=== PATIENT | male | born 1940 | race Caucasian/White ===

== ENCOUNTER 2017-02-28 13:43 | Inpatient (IN) | payer MEDICARE, OTHER ==
[~2017-02-28] VITALS: Ht 190.5 cm; Wt 95.0 kg
[2017-02-28] VITALS (9 sets, daily range): BP systolic 108–134; BP diastolic 54–87; PULSE 5–78; RESP 15–20; O2SAT 95–99
[~2017-02-28 13:43] MED LIST: AMLO5TAB2 PO; ASPI-973 PO; CHOL10008 PO; CYAN1TAB42 PO; FEXO-46 PO; FURO40TA4 PO; GLIP10TA10 PO; LISI10TA PO; METF500T4 PO; NPH,100I SUBQ; PARO10TA2 PO; PRAM0.252 PO; PRAV80TA2 PO; RANI300C PO; SAW160CA2 PO; TRAM50TA2 PO; WARF1TAB6 PO
--- NOTE | 2017-02-28 15:48 | ED.REPORT ---
HPI-Stroke / CVA Feb 28, 2017 ED Provider: Hunter Silvestre MD Pt is a 77 year old male with a hx of TIAs presenting to the ED complaining of slurred speech. His family reports that he was normal today, and then started having confusion and slurred speech a few minutes ago. Pt reports that symptoms have been intermittent for 1 week, and happened 2 nights ago, then resolved, now happened again today. He states that he thinks he had 2 "mini strokes" last week. Denies hx of kidney problems. He has been off Coumadin for [address] Mason today and was advised to come to the ED, he did not have any symptoms today prior to his ED visit. Nursing Notes Stated Complaint: Slurred Speech Chief Complaint: Neuro Symptoms/ Deficits Nursing Notes Reviewed: Yes Allergies: Coded Allergies: Penicillins (Verified Allergy, Severe, SWELLING, 02/28/17) Scheduled Amlodipine (Amlodipine) 5 Mg Tablet 5 MG PO BID (Reported) Aspirin (Aspirin) 81 Mg Tablet 81 MG PO QAM (Reported) Cholecalciferol (Vitamin D3) (Vitamin D3) 1,000 Unit Tab.chew 1,000 UNIT PO QAM (Reported) Cyanocobalamin/Folic Acid (Vitamin J24-Jwbyg Acid Tablet) 1 Each Tablet 1 EACH PO QAM (Reported) Fexofenadine (Fexofenadine) 60 Mg Tablet 120 MG PO QAM (Reported) Furosemide (Furosemide) 40 Mg Tablet 20 MG PO QAM (Reported) Glipizide (Glipizide) 10 Mg Tablet 10 MG PO BIDWM (Reported) Lisinopril (Lisinopril) 10 Mg Tablet 10 MG PO BID (Reported) Metformin (Glucophage) 1,000 Mg Tablet 1,000 MG PO BIDWM (Reported) NPH, Human Insulin Isophane (HUMulin-N U100 Insulin Kwikpen) 100 Unit/1 Ml Insuln.pen 10 UNIT SUBQ HS (Reported) Paroxetine (Paroxetine) 10 Mg Tablet 10 MG PO HS (Reported) Pravastatin (Pravastatin) 80 Mg Tablet 80 MG PO HS (Reported) Saw [place] (Saw [place]) 160 Mg Capsule 160 MG PO QAM (Reported) Warfarin Sodium (Warfarin Sodium) 5 Mg Tablet 2.5 MG PO QPM (Reported) Scheduled PRN Acetaminophen (Acetaminophen) 325 Mg Tablet 650 MG PO Q4H PRN PRN For Pain ( Reported) Scopolamine (Transderm-Scop) 1 Each Patch.td72 1 EACH TD DIRECTED PRN PRN MOTION SICKNESS (Reported) USES WHEN GOES FISHING General Time Seen by Provider: 16:35 Chief Complaint Slurred speech Hx Obtained From: Patient, Spouse Arrived By: Walk-in Time last known well 0145 Sudden in Onset?: Yes Symptom Duration: Since onset Progression Since Onset: Gradually worsening Severity: Current: No pain currently Severity: Maximum: No pain Associated with: Reports: Confusion, Speech problem Recent Healthcare: No recent doctor visit, No recent hospitalization Similar Sx Previous: Yes Past Medical History Past Medical History Dysphagia Reports hx of TIAs Past Surgical History Endoscopy Smoking History Former Smoker Ambulatory Status Independent Review of Systems Unable to Obtain ROS Mental status Neurologic: Reports: Confusion, Slurred speech Physical Exam Nursing note and vitals reviewed. Constitutional: Well-developed, well-nourished. Not diaphoretic. Head: Normocephalic and atraumatic. Mouth/Throat: Oropharynx is clear and moist. No oropharyngeal exudate. Eyes: EOM are normal. Pupils are equal, round, and reactive to light. Neck: Supple, no tracheal deviation. Cardiovascular: Normal rate, regular rhythm. Equal and intact distal pulses throughout. Pulmonary/Chest: Effort normal and breath sounds normal. No respiratory distress. Abdominal: Soft. No distension. There is no tenderness, rebound, or guarding. Bowel sounds present. Musculoskeletal: Range of motion grossly intact, moving all extremities. No edema or tenderness appreciated. Neurological: AOx3. Strength and sensation intact and equal to bilateral upper and lower extremities. Normal finger to nose testing. No pronator drift. Negative Romberg. Speech a bit slurred, right side facial droop. Right sided dysmetria. Skin: Warm and dry, no rashes or pallor appreciated. Psychiatric: Appropriate mood and affect. Behavior appears normal. Initial Vital Signs Vital Signs (First) Date Time Temp Pulse Resp B/P Pulse Ox O2 Delivery O2 Flow Rate FiO2 02/28/17 13:49 36.5 77 18 108/68 96 Room Air Initial VS: Reviewed Interpretation & Diagnostics Interpretation & Diagnostics: CT ANGIO BRAIN/NECK: IMPRESSION: 1. Deep and periventricular white matter changes and volume loss likely associated with chronic microvascular ischemic changes. 2. 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 3. Mild stenosis within the central cervical portion of the right internal carotid artery secondary to atheromatous calcification. 4. No other stenosis, occlusion, or aneurysm. 5. Large anterior mediastinal mass incompletely characterized on this limited view of the chest. Nonemergent, dedicated CT of the chest with contrast is recommended to further characterize this finding. Dictated by: Kim Christy M.D. on 02/28/2017 at 17:48 Lab Results Interpretation Result Diagram: 02/28/17 1554 02/28/17 1554 Test 02/28/17 15:44 02/28/17 15:54 02/28/17 17:29 Activated Partial Thromboplast Time 63.7sec (22.8-33.0) Troponin T < 0.010ug/L (0.0-0.011) Triglycerides Level 90mg/dL (0-149) Cholesterol Level 128mg/dL (100-199) LDL Cholesterol, Calculated 80.000mg/dL (0-99) VLDL Cholesterol 18.000mg/dL HDL Cholesterol 30mg/dL (>39) Cholesterol/HDL Ratio 4.27 (0.0-4.4) Alcohols < 10mg/dL (0-10) White Blood Count 13.4th/mm3 (3.8-10.1) Red Blood Count 4.36mil/mm3 (4.40-5.80) Hemoglobin 11.2g/dL (13.8-17.2) Hematocrit 35.8% (41.0-50.0) Mean Corpuscular Volume 82.1fL (81-100) Mean Corpuscular Hemoglobin 25.7pg (27.0-35.0) Mean Corpuscular Hemoglobin Concent 31.3% (32.0-37.0) Red Cell Distribution Width 15.6% (12.3-15.4) Platelet Count 288bil/L (150-400) Neutrophils (%) (Auto) 79.0% (40-74) Lymphocytes (%) (Auto) 11.0% (14-46) Monocytes (%) (Auto) 7.0% (4-12) Eosinophils (%) (Auto) 2.4% (0-5) Basophils (%) (Auto) 0.4% (0-3) Prothrombin Time 41.7sec (8.1-12.5) Prothromb Time International Ratio 3.79ratio Sodium Level 138mEq/L (134-144) Potassium Level 3.8mEq/L (3.5-5.2) Chloride Level 100mEq/L (97-108) Carbon Dioxide Level 22mmol/L (18-29) Blood Urea Nitrogen 21mg/dL (8-27) Creatinine 0.99mg/dL (0.76-1.27) Estimat Glomerular Filtration Rate 78mL/min (>59) Glucose Level 40mg/dL (60-99) Calcium Level 9.7mg/dL (8.5-10.1) Total Bilirubin 0.5mg/dL (0.0-1.2) Aspartate Amino Transf (AST/SGOT) 30U/L (0-50) Alanine Aminotransferase (ALT/SGPT) 25U/L (0-44) Alkaline Phosphatase 118U/L (25-160) Total Protein 7.7g/dL (6.4-8.4) Albumin 3.9g/dL (3.4-5.0) Hold Grossman Top Tube Received (Received) Urine Color Yellow (YELLOW) Urine Appearance Clear (CLEAR,HAZY) Urine pH 5.5 (5.0-8.0) Urine Specific [place] 1.020 (1.003-1.035) Urine Protein Negativemg/dL (NEG,TRACE) Urine Glucose (UA) Negativemg/dL (NEGATIVE) Urine Ketones Negativemg/dL (NEGATIVE) Urine Occult Blood Trace (NEGATIVE) Urine Nitrite Negative (NEGATIVE) Urine Bilirubin Negative (NEGATIVE) Urine Urobilinogen Normalmg/dL (NORMAL) Urine Leukocyte Esterase Small (NEGATIVE) Urine RBC 0-2/hpf (0-2) Urine WBC 6-10/hpf (0-5) Urine Epithelial Cells Few/hpf (NONE-MOD) Urine Crystals None seen (NONE SEEN) Urine Bacteria Few/hpf (NONE-FEW) Urine Hyaline Casts None/lpf (NONE) Urine Granular Casts None seen (NONE SEEN) Urine Waxy Casts None seen (NONE SEEN) Urine Red Blood Cell Casts None seen (NONE SEEN) Urine White Blood Cell Casts None seen (NONE SEEN) Urine Mucus None seen (None Seen) Urine Trichomonas None seen (NONE SEEN) Urine Yeast None (NONE SEEN) Urinalysis Comment None Urine Culture Reflexed Indicated Urine Opiates Screen Negative Urine Methadone Screen Negative Urine Barbiturates Screen Negative Urine Amphetamines Screen Negative Urine Benzodiazepines Screen Negative Urine Cocaine Metabolite Screen Negative Urine Cannabinoids Screen Negative ECG Interpretation ECG Interpretation: Atrial fibrillation Time: 16:01 Interpreted by: ED physician Normal ECG Interpretation: Normal rate (67) X-Ray Chest Interpretation Chest Xray Interpretation: IMPRESSION: Newly apparent right apical opacity may represent early pneumonia versus loculated pleural effusion. Dictated by: Pierre Barragan M.D. on 02/28/2017 at 15:06 View: Portable, 1 view Interpretation / Wet Read by: Interpret - Radiologist CT Head Interpretation IMPRESSION: 1. No acute intracranial findings. 2. Extensive findings likely associated with chronic microvascular ischemic changes. Dictated by: Kim Christy M.D. on 02/28/2017 at 17:18 Interpretation / Wet Read by: Interpret - Radiologist Re-Eval/Medical Decision Med Decision/Clinical Course 77-year-old male with a complex past medical history presenting to the ED for evaluation of multiple episodes that the patient considers to be "mini strokes" over the past week characterized by slurred speech and confusion. Initial NIH stroke scale of 2. However, I was subsequently called to bedside as the patient had an acute change in mental status. Patient's blood sugar was 40; given glucose here in the ED with repeat levels in the 100s. I considered giving TPA after the initial change in mental status given worsening right- sided facial droop, confusion, and slurred speech, as well as right-sided dysmetria, however the patient has an INR of 3.79 and his symptoms have been intermittent over the past week. I discussed this case at length with the neurologist below, who also believes that TPA is not indicated at this time. Patient was hypoglycemic here, and this likely complicated/contributed to his symptoms, though he has still had this new right-sided facial droop and unilateral symptoms irrespective of his glucose. CT scan and CTA as per above. Plan admission for further evaluation and management including stroke workup, MRI, medical management. Patient and family agreeable to the plan as stated, no further questions. Re-Evaluation/Progress #1: Time of Eval: 16:59 Patient Status: Condition improved Re-Evaluation/Progress Note: Pt is in CT. Spoke to the pt's . Re-Evaluation/Progress #2: Time of Eval: 17:08 Patient Status: Condition improved Re-Evaluation/Progress Note: Pt states that he is feeling better than before. Discussed plan for CTA and admission. Re-Evaluation/Progress #3: Time of Eval: 18:39 Patient Status: Condition improved Re-Evaluation/Progress Note: Discussed CT results and plan for admission and MRI. Pt understands and agrees. NIH Stroke Scale : Level of Consciousness: Alert and responsive (0) Ask Month & Age: Both questions right (0) Open/Close Eyes/Hand Sheriff Detective: Performs both tasks (0) Horizontal EO Movements: None (0) Visual [place]: No visual loss (0) Facial Palsy: Minor paralysis (1) Right Arm Motor Drift (10s): No drift 10 sec (0) Left Arm Motor Drift (10s): No drift 10 sec (0) Right Leg Motor Drift (5s): No drift 5 sec (0) Left Leg Motor Drift (5s): No drift 5 sec (0) Limb Ataxia FNF/Heel-Isbell: No ataxia (0) Sensation (Arms/Legs/Face): No sensory loss (0) Language Aphasia: No aphasia, normal (0) Dysarthria: Slurring intelligible (1) Extinction/Inattention: No exctinct/inattent (0) Time NIHSS Performed: 16:20 Consultation #1: Consulted With: Neurology Call Returned at: 17:33 Note: [facility]. Pt is not a candidate for TPA because of his orothrombectomy and because of the intermittent nature of symptoms, and because of his comorbidities. He does not need to be transferred and does not need to be evaluated by him. Consultation #2: Referral / Consult Name: Iqra Velazquez DO Consulted With: Hospitalist Call Returned at: 18:08 Alcohol Rubber: Will see patient, Agrees with plan, Accepts admit Note: Spoke to Dr. Velazquez and mentioned need for repeat imaging for chest CT. Counseled Regarding: Diagnosis, Lab results, Need for admission Patient Discharge & Departure Impression: Primary Impression: TIA (transient ischemic attack) Transient cerebral ischemia type: unspecified Qualified Code: G45.9 - Transient cerebral ischemic attack, unspecified Additional Impressions: CVA (cerebral vascular accident) CVA mechanism: unspecified Qualified Code: I63.9 - Cerebral infarction, unspecified Hypoglycemia Disposition: ADMITTED TO HOSPITAL Discharge Condition All VS Reviewed: Yes Condition: Improved Referrals: Dulce Mason MD (PCP) Crit Care Except Billable Proc Time Spent: 30-74 minutes Services Performed: Patient management by me, Time spent at bedside, Reviewing test results, Reviewing imaging, Discussing patient care, Documentation in record, Time with fam/surrogate Critical Care Notes: Please see MDM. Avalos Attestation Portions of this note were transcribed by Swati Sarah. I, Dr. Silvestre personally performed the history, physical exam and medical decision-making; I reviewed and confirmed the accuracy of the information in the transcribed note. Signed by: Bailey Castro, 02/28/2017 at 1840. copies to: Dulce Mason MD, William B MD Feb 28, 2017 15:48 SWATI SARAH Feb 28, 2017 16:09
[2017-02-28 15:58] LABS: BASOPHILS % (AUTO) 0.4 % (0-3); EOSINOPHILS % (AUTO) 2.4 % (0-5); Mean Corpuscular Hemoglobin 25.7 pg (27.0-35.0); Mean Corpuscular Volume 82.1 fL (81-100); Platelet Count 288 bil/L (150-400)
--- NOTE | 2017-02-28 16:10 | DRSVH ---
PROCEDURE: X-RAY CHEST ONE VIEW, PORTABLE ([id number]) INDICATIONS: 77-year-old male with weakness. TECHNIQUE: One view of the chest was acquired. COMPARISON: [facility], CR, XR CHEST 2VW, 02/24/2017, 7:37. [facility], CR, CHEST 1VW (PORTABLE), 06/26/2011, 21:34. [facility] [place], CR, CHEST 2VW, 01/04/2011, 9: 05. FINDINGS: Surgical changes and devices: Cholecystectomy clips are present. Lungs and pleura: No pleural effusions or pneumothorax. Lungs are clear, except for newly apparent right apical opacity. Mediastinum: Mediastinal contours appear normal. Heart size is normal. There is aortic atheroscler osis. Bones and chest wall: No suspicious bony lesions. Overlying soft tissues appear unremarkable. IMPRESSION: Newly apparent right apical opacity may represent early pneumonia versus loculated pleura l effusion. Dictated by: Pierre Barragan M.D. on 02/28/2017 at 15:06 Approved by: Pierre Barragan M.D. on 02/28/2017 at 15:08
[2017-02-28] MEDS ORDERED: 0.9% Sodium Chloride 1,000 ML IV ONE (17:04)
[2017-02-28 17:10] LABS: INR 3.79 ratio
--- NOTE | 2017-02-28 17:21 | DRSVH ---
PROCEDURE: CT BRAIN WITHOUT CONTRAST ([id number]) INDICATIONS: eval for acute stroke, other abnl TECHNIQUE: Noncontrast 4.5 mm thick angled axial sections acquired from the foramen magnum to the vertex, with c oronal reformats. COMPARISON: None. FINDINGS: Image quality: Excellent. CSF spaces: Basal cisterns are patent. No extra-axial fluid collections. The ventricles are symmet vega in size and shape. Brain: No intracranial bleeds or masses. There is marked cerebral volume loss for age, with resulta nt ventricular and sulcal prominence. There are extensive periventricular and deep white matter business technology analyst daisy small vessel ischemic changes. There is intracranial internal carotid artery atherosclerosis. Skull and face: Calvarium and visualized facial bones appear intact, without suspicious lesions. Sinuses: Visualized sinuses and mastoids are clear. IMPRESSION: 1. No acute intracranial findings. 2. Extensive findings likely associated with chronic microvascular ischemic changes. Dictated by: iKm Christy M.D. on 02/28/2017 at 17:18 Approved by: Kim Christy M.D. on 02/28/2017 at 17:19
[2017-02-28 17:29] LABS: TROPONIN T < 0.010 ug/L (0.0-0.011)
[2017-02-28 17:57] LABS: APPEARANCE,URINE CLEAR (CLEAR,HAZY); COLOR,URINE YELLOW (YELLOW)
[2017-02-28 17:58] LABS: OCCULT BLOOD,URINE TRACE (NEGATIVE); PH,URINE 5.5 (5.0-8.0); UROBILINOGEN,URINE NORMAL (NORMAL)
--- NOTE | 2017-02-28 18:03 | DRSVH ---
PROCEDURE: CT ANGIO BRAIN NECK TPA INDICATIONS: STAT READ - CALL ED PROVIDER W/RESULTS TECHNIQUE: Pre-contrast 4.5 mm thick sections acquired from the foramen magnum to the vertex. After the adminis tration of intravenous contrast, 1 mm thick sections acquired from the aortic arch through the [place] of [place]. Post-contrast 4.5 mm thick sections then re-acquired from the foramen magnum to the vert ex. 3-dimensional roetuow-xpblfktre-fmqabrohmg (MIP) and/or volume rendering reformats were acquired of the central intracranial vasculature and neck separately. For radiation dose reduction, the foll owing was used: automated exposure control, adjustment of mA and/or kV according to patient size. COMPARISON: [facility], CR, XR CHEST 1VW (PORTABLE), 02/28/2017, 15:41. [facility], CR, XR CHEST 2VW, 02/24/2017, 7:37. FINDINGS: Image quality: Excellent. BRAIN: CSF spaces: Ventricles are normal in size and shape. Basal cisterns are patent. No extra-axial flu id collections. Brain: No midline shift. No intracranial bleeds or masses. Hanna-white matter interface appears int act. There is marked volume loss in deep and periventricular white matter changes associated with mi crovascular ischemic changes. Skull and face: Calvarium and facial bones appear intact, without suspicious lesions. Orbits appear normal. Sinuses: Sinuses and mastoids are clear. HEAD CT ANGIOGRAPHY: Anterior circulation: Intracranial internal carotid arteries are normal in overall size and flow. A moderate grade stenosis is present within the cavernous portion of the left internal carotid artery s econdary to dense atheromatous calcifications. The flow within the paired anterior cerebral arteries is normal and symmetric. The flow within the middle cerebral arteries is normal and symmetric. The anterior communicating artery is seen. No aneurysms are seen. Posterior circulation: Visualized portions of the vertebral arteries demonstrate normal caliber, and join to form a normal appearing basilar artery. Flow within the posterior cerebral arteries is norm al and symmetric. No aneurysms are seen. NECK CT ANGIOGRAPHY: Carotid system: There is likely bovine anatomy which is incompletely characterized on the inferior ma rgins of this study. The origins of the common carotid arteries appear patent. The common carotid ar teries demonstrate normal caliber and courses. The bifurcation regions are both widely patent. A mi ld stenosis is present at the origin of the right internal carotid artery. The internal carotid arter ies demonstrate otherwise normal calibers. There is marked tortuosity of the bilateral internal carot id arteries. Posterior circulation: The origins of the vertebral arteries both appear widely patent. The more moreno perior extracranial portions of both vertebral arteries also demonstrate normal courses and calibers. They join to form a normal appearing basilar artery. Soft tissues: There is a large, partially characterized anterior mediastinal mass which displaces the trachea leftward and splays the right lobe of the thyroid laterally. Bones: No suspicious bony lesions. Visualized cervical spine appears normally aligned. IMPRESSION: 1. Deep and periventricular white matter changes and volume loss likely associated with chronic micro vascular ischemic changes. 2. 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 3. Mild stenosis within the central cervical portion of the right internal carotid artery secondary t o atheromatous calcification. 4. No other stenosis, occlusion, or aneurysm. 5. Large anterior mediastinal mass incompletely characterized on this limited view of the chest. None mergent, dedicated CT of the chest with contrast is recommended to further characterize this finding. Dictated by: Kim Christy M.D. on 02/28/2017 at 17:48 Approved by: Kim Christy M.D. on 02/28/2017 at 18:01
[2017-02-28] MEDS ORDERED: WARF5TAB7 PO (18:53)
[2017-02-28] MEDS ORDERED: METF1000 PO (18:53)
[2017-02-28] MEDS ORDERED: SCOP1PAT TD (18:55)
[2017-02-28] MEDS ORDERED: ACET325T51 PO (18:56)
[2017-02-28] MEDS ORDERED: Labetalol 5 mg/mL 4 mL Inj IVPUSH PRN (19:45)
[2017-02-28] MEDS ORDERED: Ondansetron 2 mg/mL 2 mL Inj IVPUSH PRN (19:45)
[2017-02-28] MEDS ORDERED: Polyethylene Glycol (PEG) 17 Gm Powder PO PRN (19:45)
[2017-02-28] MEDS ORDERED: Alum-Mag Hydrox-Simeth 30 mL Suspension PO PRN (19:45)
[2017-02-28] MEDS ORDERED: Glucose 40% Oral Gel 15 Gm Tube PO PRN (21:20)
[2017-02-28] MEDS: Dipyridamole-Aspirin 200-25 mg ER12 Capsule PO SCH (21:23)
--- NOTE | 2017-02-28 21:23 | PCM.HPMED ---
Subjective Date of Service Feb 28, 2017 Primary Provider: Admitting Physician: Claudine Pereira MD Primary Care Physician: Dulce Mason MD Attending Physician: Claudine Pereira MD Admit Status: From the Emergency Department, Full Admit, Remote Telemetry Chief Complaint: Slurred speech History of Present Illness: Dilip Saini is a 77-year-old man with past medical issues significant for diabetes mellitus, atrial fibrillation on chronic anticoagulation although recently stopped warfarin due to an upcoming EGD 3 days ago, hypertension, obstructive sleep apnea, and coronary artery disease who presents with slurred speech and right facial droop. Patient has been experiencing symptoms including weakness, slurred speech, and facial droop on and off for the past 3 weeks. Today he called his PCP, Dr. Mason, and his rehab therapist who both encouraged him to present to the emergency department as he was currently experiencing slurred speech and right facial droop. Patient was previously diagnosed with TIA 5-6 years ago at which time they also diagnosed with atrial fibrillation for which he has been on chronic anticoagulation with warfarin. The patient recently stopped his warfarin 3 days ago due to an upcoming EGD to evaluate his ongoing dysphagia. On presentation to the ED his NIH score was 2 and vitals were temperature 36.5, pulse 77, respiratory rate 18, blood pressure 108/68, saturating 96% on room air. Initial labs included a glucose of 40, INR of 3.79, leukocytosis of 13.4 with 79% neutrophils, and negative troponin. CT of the brain was completed and [facility] neurology was called. Patient was not a candidate for TPA or thrombectomy due to supratherapeutic INR, intermittent symptoms, and comorbidities. [facility] recommended further evaluation with an MRI in the morning. Review of Systems: Comprehensive review of systems was conducted with the patient and found to be negative except as noted above in HPI. Allergies Coded Allergies: Penicillins (Verified Allergy, Severe, SWELLING, 02/28/17) Home Medications Amlodipine Aspirin Furosemide Glipizide Lisinopril Metformin NPH Paroxetine Pramipexole Pravastatin Ranitidine Saw palmetto Warfarin Fexofenadine PMH Diabetes mellitus Hypertension Obstructive sleep apnea Atrial fibrillation on chronic anticoagulation Coronary artery disease. Normal myocardial perfusion scan September 2003 EF 60% . Cardiac cath in 2005. BPH History of end-stage renal disease status post hemodialysis now recovered History of TIAs Dysphagia Surgical History Endoscopy Cholecystectomy Polypectomy Family History No history of cancer or cardiac disease. Social History Hx Alcohol Use: Yes (RARE) Hx Substance Use: No Hx Tobacco Use: Yes (quit smoking in 1989) Smoking Status: Former Smoker Years of [place] Living Arrangement: with Family Exam Vital Signs Vital Sign - Last Date Time Temp Pulse Resp B/P Pulse Ox O2 Delivery O2 Flow Rate FiO2 02/28/17 19:29 36.3 78 18 134/87 98 Room Air Exam General: No acute distress, well-developed, well-nourished, appropriately interactive HEENT: Normocephalic, atraumatic. External ears without defect. Pupils equal, round, and reactive to light and accommodation. Anicteric sclerae, moist conjunctivae, and no lid lag. Oropharynx free of erythema and cobble stoning with moist mucosa. Neck: Supple with full range of motion. No jugular venous distension. No bruits. No lymphadenopathy or thyromegaly. Cardiovascular: Irregularly irregular with no murmurs, rubs, or gallops appreciated Pulmonary: Clear to auscultation bilaterally with no crackles, wheezes, or rhonchi. Normal respiratory effort with no use of accessory muscles. Abdomen: Bowel tones present. Soft, nontender, nondistended. No hepatosplenomegaly or masses appreciated. Extremities: No clubbing, cyanosis, edema, or lymphadenopathy appreciated. Skin: Normal temperature, turgor, and texture; no rash, ulcers, or subcutaneous nodules appreciated. Neurological: Cranial nerves grossly intact. Strength and sensation intact and equal to bilateral upper and lower extremities. Normal finger to nose testing. No pronator drift. Negative Romberg. Speech slightly slurred. Right sided facial droop. Psychiatric: Normal mood and affect. Alert and oriented to person, place, and time. Lab and Diagnostics Result Diagram: 02/28/17 1554 02/28/17 1554 X-Rays, CTs and MRIs CT ANGIO BRAIN NECK TPA IMPRESSION: 1. Deep and periventricular white matter changes and volume loss likely associated with chronic microvascular ischemic changes. 2. 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 3. Mild stenosis within the central cervical portion of the right internal carotid artery secondary to atheromatous calcification. 4. No other stenosis, occlusion, or aneurysm. 5. Large anterior mediastinal mass incompletely characterized on this limited view of the chest. Nonemergent, dedicated CT of the chest with contrast is recommended to further characterize this finding. Dictated by: Kim Christy M.D. on 02/28/2017 at 17:48 Approved by: Kim Christy M.D. on 02/28/2017 at 18:01 CT BRAIN WITHOUT CONTRAST ([id number]) IMPRESSION: 1. No acute intracranial findings. 2. Extensive findings likely associated with chronic microvascular ischemic changes. Dictated by: Kim Christy M.D. on 02/28/2017 at 17:18 Approved by: Kim Christy M.D. on 02/28/2017 at 17:19 X-RAY CHEST ONE VIEW, PORTABLE ([id number]) IMPRESSION: Newly apparent right apical opacity may represent early pneumonia versus loculated pleural effusion. Dictated by: Pierre Barragan M.D. on 02/28/2017 at 15:06 Approved by: Pierre Barragan M.D. on 02/28/2017 at 15:08 12-lead ECG Atrial fibrillation with rate of 67 Assessment & Plan Dilip Saini is a 77-year-old man with past medical issues significant for diabetes mellitus, atrial fibrillation on chronic anticoagulation although recently stopped warfarin due to an upcoming EGD 3 days ago, hypertension, obstructive sleep apnea, and coronary artery disease who presents with slurred speech and right facial droop. Admitted for CVA workup. Cerebrovascular accident, present on admission, active. - Not a candidate for TPA due to supratherapeutic INR and intermittent nature of symptoms. - Head CT without contrast showed no acute intracranial findings but extensive findings likely associated with chronic microvascular ischemic changes. - ABCD score was 3. - EKG showed atrial fibrillation with a rate of 67. - Monitor on telemetry. - CT angiogram brain and neck showed mild stenosis of the right internal carotid artery and moderate stenosis of the left internal carotid artery. - Echo and MRI ordered for the morning. - Lipid panel pending. - Allow for permissive hypertension to not treat unless SBP >220 or DBP >120 - Aggrenox 200-25 mg twice a day. - INR supratherapeutic. Warfarin will continue to be held. - Atorvastatin 40 mg daily started. - Speech and swallow evaluation pending. Hypoglycemia, present on admission, active. - Blood sugar was found to be 40 on presentation to the emergency department. - Patient was given applesauce and blood sugar subsequently improved. - We will continue to monitor with bedside glucose checks. Supratherapeutic INR, present on admission, active. - Patient had stopped warfarin 3 days ago due to an upcoming EGD by Dr. Hayden on 03/03. - INR still remained elevated at 3.79. - Warfarin will continue to be held. - Repeat INR in the morning. Atrial fibrillation, present on admission, active. - Continue home regimen of amlodipine. - Patient on chronic anticoagulation and supratherapeutic as above. Coronary artery disease, present on admission, chronic. - Patient sees a rehab therapist in [place]. He states that 5-10 years ago a stent was attempted to be placed but was unsuccessful. He denies prior DE. - May be beneficial to obtain records from rehab therapist. Patient could not recall name of radiologist. Obstructive sleep apnea, present on admission, chronic. - Brother agreed to bring patient's CPAP machine in for him tonight. Diabetes mellitus insulin using, present on admission, chronic. - Metformin and glipizide will be held. - Glargine 10 units at bedtime. - Patient placed low-dose correctional scale. - Blood glucose will be closely monitored as patient was hypoglycemic on admission as noted above. PRN Medications - Acetaminophen as needed for mild pain/fever/headache - Bowel regimen as needed - Antiemetic as needed Patient is admitted under inpatient status with expected length of stay greater than 2 midnights due to severity of presenting symptoms, risk of adverse event, and complexity of treatment plan. Pain Evaluation: Adequate Pain Control GI Prophylaxis: Not indicated VTE Prophylaxis: SCDs Resuscitation Status: CPR: Attempt Resuscitation BEVERLY ADAMS DO Feb 28, 2017 19:37
[2017-02-28] MEDS: Insulin LISPRO 300 Unit/3 mL Inj SUBQ SCH (22:00)
--- NOTE | 2017-02-28 22:26 | NUR ---
Admission Pt arrived from ER to [facility] # [id number] approx at 1999. Admission assessment and screening completed. Pt brought his home CPAP. No neurological deficit noted. No overt complications noted. Report given and care transferred to Marita De Souza RN.
[2017-02-28] MEDS: PARoxetine 20 mg Tablet PO SCH (22:47)
[2017-03-01] VITALS (10 sets, daily range): BP systolic 116–130; BP diastolic 56–67; PULSE 24–67; RESP 16–18; O2SAT 96–98
--- NOTE | 2017-03-01 06:23 | NUR ---
Shift Note Assumed pt care at 2230, pt a/o able to make needs known, Neurovascular checks q4, no noted deficits, pt on tele, A-fib with HR down to 28-50's throughout night as reported by medical office technician,pt remains asymptomatic,teaching done on signs/symptoms of bradycardia, pt no c/o pain/discomfort, BG checks throughout night, no signs of hypo/hyperglycemia, call light in reach at all times.
[2017-03-01 07:07] LABS: BASOPHILS % (AUTO) 0.2 % (0-3); EOSINOPHILS % (AUTO) 2.4 % (0-5); MONOCYTES % (AUTO) 6.4 % (4-12); Mean Corpuscular Hemoglobin 26.1 pg (27.0-35.0); Mean Corpuscular Volume 82.5 fL (81-100); NEUTROPHILS % (AUTO) 81.7 % (40-74); Platelet Count 262 bil/L (150-400)
[2017-03-01 07:29] LABS: INR 3.4 ratio
[2017-03-01] MEDS: Insulin LISPRO 300 Unit/3 mL Inj SUBQ SCH ×4 (08:00→22:00)
[2017-03-01] MEDS: Dipyridamole-Aspirin 200-25 mg ER12 Capsule PO SCH ×2 (08:40→21:02)
--- NOTE | 2017-03-01 09:21 | NUR ---
Evaluation completed. Please go to "Notes" then click on "Assessments and Notes" (bottom left corner of screen). Then select appropriate discipline tab on top of screen.
--- NOTE | 2017-03-01 09:27 | NUR ---
Pt. screened for OT needs. None identified. Pt. independent per physical therapy with no safety concerns. DC order. Samir Zambrano, OTR/L
--- NOTE | 2017-03-01 10:52 | NUR ---
Social Work-multidisciplinary rounds: Per MD, pt will likely be here 1-2 more days. SW to complete assessment today. PT/OT/ST pending. ROBERTO Vazquez
--- NOTE | 2017-03-01 11:10 | NUR ---
Nutrition Type of Assessment: Past Medical History: Diet: Nutrition Support: Food Preference: Labs: Meds: GI: Skin: Weight: Estimated Nutrient Needs: Est Calories: Est Protein: Est Fluids: Nutrition Diagnosis: 1.) 2.) 3.) 4.) Nutrition Intervention: 1.) 2.) 3.) Monitor/Evaluation: Addendum: 03/01/17 at 1346 by DYLAN LÓPEZ Incorrect note entered. Evaluation completed. Please go to "Notes" then click on "Assessments and Notes" (bottom left corner of screen). Then select appropriate discipline tab on top of screen.
--- NOTE | 2017-03-01 11:42 | DRSVH ---
PROCEDURE: MRI BRAIN WITHOUT CONTRAST ([id number]) INDICATIONS: Slurred speech and right facial droop. Rule out CVA. TECHNIQUE: Non-contrast axial T1 spin echo, axial T2 fast spin echo, sagittal and axial FLAIR, coronal T2 fast s pin echo, axial gradient echo, axial diffusion and ADC through the brain. COMPARISON: [facility], CT, CT BRAIN WO CON, 02/28/2017, 16:56. FINDINGS: Image quality: There is mild motion artifact.. CSF spaces: There is moderate to severe cerebral volume loss with prominence of the ventricles and s ulci. Basal cisterns are patent. No extra-axial fluid collections. Brain: Diffusion-weighted images demonstrate no acute infarcts. No intracranial hemorrhage, mass, o r mass effect. There are confluent subcortical and periventricular areas of white matter T2 hyperint ensity as well as involvement in the brainstem consistent with moderate chronic white matter small ve ssel ischemic changes. Normal intravascular flow voids are present. Skull and face: Calvarial bone marrow is normal in signal. Orbits are normal. Sinuses: There is mild mucosal thickening within the ethmoid and maxillary sinuses. Mastoid air cell s are clear. IMPRESSION: 1. No evidence of infarct or acute intracranial abnormality. 2. Moderate to severe cerebral volume loss and moderate chronic white matter small vessel ischemic c hanges. Dictated by: Stephen Ruvalcaba M.D. on 03/01/2017 at 11:35 Approved by: Stephen Ruvalcaba M.D. on 03/01/2017 at 11:40
--- NOTE | 2017-03-01 12:08 | NUR ---
Social Work-initial assessment/ readiness for discharge: Data:See initial assessment. Pt is a 77 y/o male who was admitted on 02/28/17 for CVA per H&P. Pt's insurance is [email or web address] and PCP is Dulce Mason MD. EMR Reviewed. SW met with pt at bedside, SW role explained. Pt is alert and oriented x3. Pt resides at home with his and brother where he remains independent with ADLS. Pt does not use any DME and drives. Pt has no HH or SNF history. Pt has no [facility]ci care insurance or VA benefits. SW discussed DPOA/ advanced directive, pt has the paperwork just has not completed this, SW encouraged pt to complete this. PT/ST/OT have seen pt and cleared pt home no needs. Pt has capacity to self care due MD with no concerns and RN states pt can follow instructions. Pt also has home CPAP in the room. Pt's family to provide transport home at discharge. SW provided pt with discharge planning checklist booklet and encouraged pt to call with any questions. SW provided phone number and plan on white board in room. No anticipated discharge needs. SW will continue to follow if needs arise. Assessment:Pt who is independent at baseline. Plan:Pt to discharge home when medically stable via POV. PT/ST/OT have seen pt and cleared pt home no needs.No anticipated discharge needs. SW will continue to follow if needs arise. ROBERTO Vazquez Addendum: 03/01/17 at 1424 by JESSICA OVIEDO Amended: Links added.
--- NOTE | 2017-03-01 16:04 | NUR ---
Transfer to [facility] Pt transferred off [facility] unit via wc by [facility] RN at 1550. Pt denied having pain. VSS. All personal belongings and Meds left with pt. Report called to receiving NORMA Ponce.
--- NOTE | 2017-03-01 18:39 | NUR ---
PIO Parsons is waiting on his ECHO tomorrow morning. No neuro deficits assessed.
[2017-03-01] MEDS ORDERED: Insulin GLARgine 100 Unit/mL Syringe SUBQ SCH ×2 (21:00→21:42)
[2017-03-01] MEDS: PARoxetine 20 mg Tablet PO SCH (21:02)
[2017-03-01] MEDS ORDERED: Labetalol 5 mg/mL 20 mL Inj IVPUSH PRN (21:43)
--- NOTE | 2017-03-01 22:19 | PCM.PNMED ---
Subjective Date of Service Mar 01, 2017 Subjective Patient is seen and examined, he says he has a slight mouth droop at baseline ( which he currently has, looks like tongue deviates to the right as well) but it has worsened prior to arrival. He believes his low BG has something to do with it. His PCP has recently decreased his insulin dose, pt still does not know why he was hypoglycemic. Exam Vital Signs Vital Sign - Last Date Time Temp Pulse Resp B/P Pulse Ox O2 Delivery O2 Flow Rate FiO2 03/01/17 03:37 28 03/01/17 03:24 36.4 18 123/57 98 Room Air Intake and Output 02/28/17 02/28/17 03/01/17 Cumulative From/Thru 15:00 23:00 07:00 02/28/17 13:49 - 03/01/17 05:53 Intake Total 999 ml 413 ml 1412 ml Output Total 400 ml 650 ml 1050 ml Balance 599 ml -237 ml 362 ml Intake Oral 413 ml 413 ml IV Total 999 ml 999 ml Output Urine Total 400 ml 650 ml 1050 ml # Bowel Movements 0 0 Exam General: NAD, laying in bed HEENT: Mouth droop to right , very slight, EOM intact Heart: RRR, no s3/s4 murmur Lungs: CTa, No crackles or wheezes Abd: Non tender, normal bowel sounds Neuro: CN2-12 grossly normal, with the exception of right sided droop, rombergs , babinski's, alternating hands, finger to nose are all wnl 1+ achilles reflexes PSych:No agitation IVs and Medications IV Fluids None Medications Reviewed: Medications were reviewed in detail Lab and Diagnostics Result Diagram: 03/01/1761903/01/17619 X-Rays, CTs and MRIs CT ANGIO BRAIN NECK TPA IMPRESSION: 1. Deep and periventricular white matter changes and volume loss likely associated with chronic microvascular ischemic changes. 2. 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 3. Mild stenosis within the central cervical portion of the right internal carotid artery secondary to atheromatous calcification. 4. No other stenosis, occlusion, or aneurysm. 5. Large anterior mediastinal mass incompletely characterized on this limited view of the chest. Nonemergent, dedicated CT of the chest with contrast is recommended to further characterize this finding. Dictated by: Kim Christy M.D. on 02/28/2017 at 17:48 Approved by: Kim Christy M.D. on 02/28/2017 at 18:01 CT BRAIN WITHOUT CONTRAST ([id number]) IMPRESSION: 1. No acute intracranial findings. 2. Extensive findings likely associated with chronic microvascular ischemic changes. Dictated by: Kim Christy M.D. on 02/28/2017 at 17:18 Approved by: Kim Christy M.D. on 02/28/2017 at 17:19 X-RAY CHEST ONE VIEW, PORTABLE ([id number]) IMPRESSION: Newly apparent right apical opacity may represent early pneumonia versus loculated pleural effusion. Dictated by: Pierre Barragan M.D. on 02/28/2017 at 15:06 Approved by: Pierre Barragan M.D. on 02/28/2017 at 15:08 12-lead ECG Atrial fibrillation with rate of 67 Assessment & Plan Dilip Saini is a 77-year-old man with past medical issues significant for diabetes mellitus, atrial fibrillation on chronic anticoagulation although recently stopped warfarin due to an upcoming EGD 3 days ago, hypertension, obstructive sleep apnea, and coronary artery disease who presents with slurred speech and right facial droop. Admitted for CVA workup. Cerebrovascular accident, present on admission, active. - Not a candidate for TPA due to supratherapeutic INR and intermittent nature of symptoms. - Head CT without contrast showed no acute intracranial findings but extensive findings likely associated with chronic microvascular ischemic changes. - ABCD score was 3. - EKG showed atrial fibrillation with a rate of 67. - Monitor on telemetry. - CT angiogram brain and neck showed mild stenosis of the right internal carotid artery and moderate stenosis of the left internal carotid artery. - Lipid panel WNL, A1C=5.6 - Allow for permissive hypertension to not treat unless SBP >220 or DBP >120 - Aggrenox 200-25 mg twice a day. - INR supratherapeutic. Warfarin will continue to be held. - Patient's home med simvastatin is restarted. - Speech and swallow evaluation showed no deficiencies - MR Angio stroke protocol showed:" No evidence of infarct or acute intracranial abnormality. 2. Moderate to severe cerebral volume loss and moderate chronic white matter small vessel ischemic changes." -- Echo not done on 03/01 Hypoglycemia, present on admission, active. - Blood sugar was found to be 40 on presentation to the emergency department. - Patient was given applesauce and blood sugar subsequently improved. - We will continue to monitor with bedside glucose checks. Supratherapeutic INR, present on admission, active. - Patient had stopped warfarin 3 days ago due to an upcoming EGD by Dr. Hayden on 03/03. - INR still remained elevated at 3.79. - Warfarin will continue to be held. - Repeat INR in the morning. -- INR=3.4 still supratherapeutic Atrial fibrillation, present on admission, active. - Continue home regimen of amlodipine. - Patient on chronic anticoagulation and supratherapeutic as above. Coronary artery disease, present on admission, chronic. - Patient sees a hearing aid mechanic in [place]. He states that 5-10 years ago a stent was attempted to be placed but was unsuccessful. He denies prior MS. - May be beneficial to obtain records from hearing aid mechanic. Patient could not recall name of radiologist. Obstructive sleep apnea, present on admission, chronic. - Brother agreed to bring patient's CPAP machine in for him Diabetes mellitus insulin using, present on admission, chronic. - Metformin and glipizide will be held. - Glargine 10 units at bedtime. - Patient placed low-dose correctional scale. - Blood glucose will be closely monitored as patient was hypoglycemic on admission as noted above. PRN Medications - Acetaminophen as needed for mild pain/fever/headache - Bowel regimen as needed - Antiemetic as needed Patient is admitted under inpatient status with expected length of stay greater than 2 midnights due to severity of presenting symptoms, risk of adverse event, and complexity of treatment plan. GI Prophylaxis: Not indicated VTE Prophylaxis: SCDs Resuscitation Status: CPR: Attempt Resuscitation Time spent 25 min Gina Castillo DO Mar 01, 2017 08:00
[2017-03-02 05:55] VITALS: BP 122/88; PULSE 50; RESP 17; O2SAT 100
--- NOTE | 2017-03-02 06:23 | NUR ---
Shift Note assumed pt care at 1900, pt on continuous tele, at 2100, HR 24, nonsustained,A-fib, per report from [facility], spoke to Dr. Pereira, with order to hold HS Norvasc, changed HS lantus from 10 units to 6 units, pt remains asymptomatic throughout night, call light in reach at all times.
[2017-03-02 06:58] VITALS: PULSE 60
[2017-03-02 07:17] LABS: INR 3.76 ratio
--- NOTE | 2017-03-02 07:33 | PCM.PNMED ---
Subjective Date of Service Mar 02, 2017 Subjective Hypoglycemia can cause focal neurologic deficits mimicking stroke, and severe hypoglycemia alone can cause neuronal injury. It is important to check the blood sugar and rapidly correct low serum glucose (<60 mg/dL or 3.3 mmol/L) at the first opportunity. Normoglycemia is the desired goal while avoiding marked elevation of serum glucose Exam Vital Signs Vital Sign - Last Date Time Temp Pulse Resp B/P Pulse Ox O2 Delivery O2 Flow Rate FiO2 03/02/17 06:58 60 03/02/17 05:55 36.9 17 122/88 100 Room Air Intake and Output 03/01/17 03/01/17 03/02/17 Cumulative From/Thru 15:00 23:00 07:00 02/28/17 13:49 - 03/02/17 05:56 Intake Total 150 ml 1562 ml Output Total 1050 ml Balance 150 ml 512 ml Intake Oral 150 ml 563 ml IV Total 999 ml Output Urine Total 1050 ml # Voids 3 3 # Bowel Movements 0 Lab and Diagnostics Result Diagram: 03/01/17 0620 03/01/17 0620 X-Rays, CTs and MRIs CT ANGIO BRAIN NECK TPA IMPRESSION: 1. Deep and periventricular white matter changes and volume loss likely associated with chronic microvascular ischemic changes. 2. 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 3. Mild stenosis within the central cervical portion of the right internal carotid artery secondary to atheromatous calcification. 4. No other stenosis, occlusion, or aneurysm. 5. Large anterior mediastinal mass incompletely characterized on this limited view of the chest. Nonemergent, dedicated CT of the chest with contrast is recommended to further characterize this finding. Dictated by: Kim Christy M.D. on 02/28/2017 at 17:48 Approved by: Kim Christy M.D. on 02/28/2017 at 18:01 CT BRAIN WITHOUT CONTRAST ([id number]) IMPRESSION: 1. No acute intracranial findings. 2. Extensive findings likely associated with chronic microvascular ischemic changes. Dictated by: Kim Christy M.D. on 02/28/2017 at 17:18 Approved by: Kim Christy M.D. on 02/28/2017 at 17:19 X-RAY CHEST ONE VIEW, PORTABLE ([id number]) IMPRESSION: Newly apparent right apical opacity may represent early pneumonia versus loculated pleural effusion. Dictated by: Pierre Barragan M.D. on 02/28/2017 at 15:06 Approved by: Pierre Barragan M.D. on 02/28/2017 at 15:08 12-lead ECG Atrial fibrillation with rate of 67 Assessment & Plan Dilip Saini is a 77-year-old man with past medical issues significant for diabetes mellitus, atrial fibrillation on chronic anticoagulation although recently stopped warfarin due to an upcoming EGD 3 days ago, hypertension, obstructive sleep apnea, and coronary artery disease who presents with slurred speech and right facial droop. Admitted for CVA workup. Cerebrovascular accident, present on admission, active. - Not a candidate for TPA due to supratherapeutic INR and intermittent nature of symptoms. - Head CT without contrast showed no acute intracranial findings but extensive findings likely associated with chronic microvascular ischemic changes. - ABCD score was 3. - EKG showed atrial fibrillation with a rate of 67. - Monitor on telemetry. - CT angiogram brain and neck showed mild stenosis of the right internal carotid artery and moderate stenosis of the left internal carotid artery. - Lipid panel WNL, A1C=5.6 - Allow for permissive hypertension to not treat unless SBP >220 or DBP >120 - Aggrenox 200-25 mg twice a day. - INR supratherapeutic. Warfarin will continue to be held. - Patient's home med simvastatin is restarted. - Speech and swallow evaluation showed no deficiencies - MR Angio stroke protocol showed:" No evidence of infarct or acute intracranial abnormality. 2. Moderate to severe cerebral volume loss and moderate chronic white matter small vessel ischemic changes." -- Echo not done on 03/01 Hypoglycemia, present on admission, active. - Blood sugar was found to be 40 on presentation to the emergency department. - Patient was given applesauce and blood sugar subsequently improved. - We will continue to monitor with bedside glucose checks. Supratherapeutic INR, present on admission, active. - Patient had stopped warfarin 3 days ago due to an upcoming EGD by Dr. Hayden on 03/03. - INR still remained elevated at 3.79. - Warfarin will continue to be held. - Repeat INR in the morning. -- INR=3.4 still supratherapeutic Atrial fibrillation, present on admission, active. - Continue home regimen of amlodipine. - Patient on chronic anticoagulation and supratherapeutic as above. Coronary artery disease, present on admission, chronic. - Patient sees a terminal worker in [place]. He states that 5-10 years ago a stent was attempted to be placed but was unsuccessful. He denies prior IN. - May be beneficial to obtain records from terminal worker. Patient could not recall name of radiologist. Obstructive sleep apnea, present on admission, chronic. - Brother agreed to bring patient's CPAP machine in for him Diabetes mellitus insulin using, present on admission, chronic. - Metformin and glipizide will be held. - Glargine 10 units at bedtime. - Patient placed low-dose correctional scale. - Blood glucose will be closely monitored as patient was hypoglycemic on admission as noted above. PRN Medications - Acetaminophen as needed for mild pain/fever/headache - Bowel regimen as needed - Antiemetic as needed Patient is admitted under inpatient status with expected length of stay greater than 2 midnights due to severity of presenting symptoms, risk of adverse event, and complexity of treatment plan. GI Prophylaxis: Not indicated VTE Prophylaxis: SCDs VTE Mechanical Devices: Intermittant Pneumatic CD Resuscitation Status: CPR: Attempt Resuscitation Gina Castillo DO Mar 02, 2017 07:33
[2017-03-02 08:00] VITALS: BP 138/55; PULSE 54; RESP 18; O2SAT 96
[2017-03-02] MEDS: Dipyridamole-Aspirin 200-25 mg ER12 Capsule PO SCH (08:10)
[2017-03-02] MEDS: Insulin LISPRO 300 Unit/3 mL Inj SUBQ SCH ×2 (09:22→12:31)
[2017-03-02 10:28] VITALS: PULSE 67
[2017-03-02] MEDS ORDERED: INSU100V7 SUBQ (10:32)
[2017-03-02] MEDS ORDERED: GLPZ5T PO (10:34)
[2017-03-02] MEDS ORDERED: AMLO5TAB2 PO (10:36)
--- NOTE | 2017-03-02 10:41 | PCM.DIMED ---
Discharge Instructions Date of Service Mar 02, 2017 Dates of Hospitalization Feb 28, 2017 at 19:24 Discharge Diagnosis Discharge Diagnosis stroke like symptoms due to hypoglycemia, DM II (insulin dependent), HTN, CUATE, CAD, Afib Diet Discharge Diet: Heart Healthy, Diabetic Activity Discharge Activity: No restrictions Call your provider Call your provider for: Fever or Chills, Shortness of breath, Bleeding, Chest pain, Vomitting, Excessive diarrhea, Weakness (unilateral) Patient Instructions Patient Instructions Please note changes to glipizide dosing and type of insulin. Please check BG, take OJ and call PCP if there is concern for low Blood glucose symtoms such as tremors, weakness. Please hold metformin for 48 hrs, may restart on the night of 03/04/17 Please note dose changes to amlodipine. Follow-up plan F/U with PCP Dr. Mason in one week PCP to review medication changes, CT chest W contrast that was done to examine his mediastinal mass (as seen on other imaging done here at [facility]) and discuss the findings with patient. Gina Castillo DO Mar 02, 2017 10:41
--- NOTE | 2017-03-02 12:09 | NUR ---
Off floor Patient off floor to CT, central supply technician notified.
[2017-03-02 12:38] VITALS: BP 123/63; PULSE 68; RESP 22; O2SAT 97
--- NOTE | 2017-03-02 12:48 | DRSVH ---
PROCEDURE: CT CHEST WITH CONTRAST ([id number]) INDICATIONS: mediastinal mass on mRA/CTA TECHNIQUE: After the administration of intravenous contrast, 5 mm thick sections acquired from the pulmonary api padmini to the posterior costophrenic angles. 7 mm thick coronal and sagittal MIP reformats were acquire d. For radiation dose reduction, the following was used: automated exposure control, adjustment of mA and/or kV according to patient size. COMPARISON: [facility], CT, CT ANGIO BRAIN NECK TPA, 02/28/2017, 17:25. FINDINGS: Image quality: Excellent. Lungs and pleura: No acute air space opacities. No pleural effusions or pneumothorax. Central and peripheral airways are patent and normal in caliber. Mediastinum: Heart size is normal. There are coronary artery calcifications. No pericardial effusio n. No mediastinal or hilar adenopathy by size criteria. Thoracic aorta and central pulmonary arteri es are normal in size. Redemonstration of large complex upper mediastinal mass, which closely abuts o r involves the right lobe of the thyroid. This measures approximately 5.5 x 7.5 cm cross-sectional di mension on image 12 although exact measurements are difficult due to the irregular configuration. The re is mass effect and leftward displacement of the trachea. Associated 1.7 cm focus of calcification seen on image 10 Esophagus is normal in caliber. No hiatal hernia. Bones and chest wall: No suspicious bony lesions. No vertebral body compression fractures. No axil vivi or supraclavicular adenopathy by size criteria. Left lower thyroid gland grossly unremarkable. Abdomen: Visualized upper abdominal solid organs appear normal. Upper abdominal bowel loops are nor mal in caliber. IMPRESSION: Large superior mediastinal mass as detailed above. Unclear if this is associated or originates from t he right lobe of the thyroid. Substernal goiter, thyroid malignancy, malignant thymoma, metastatic di sease, lymphoma in the differential among other possibilities. Consider further assessment with radio active iodine thyroid scan, and/or surgical consultation for mediastinoscopy for further workup. Dictated by: Rock Van M.D. on 03/02/2017 at 12:36 Approved by: Rock Van M.D. on 03/02/2017 at 12:46
--- NOTE | 2017-03-02 13:47 | NUR ---
Social Work- Discharge/Multi-Disciplinary Rounds Data: EMR reviewed. Pt is on day 2 of hospitalization for CVA stroke. Pt is likely to discharge today but discharge orders are not active at this time. Per chart review pt is off floor to CT currently. Per multi-disciplinary rounds, RN thought that pt is likely to discharge. No social work needs identified. SW stopped by pt's room to discuss discharge plan. Pt agreeable to discharge when medically ready. PT, OT and ST have cleared pt for home. Pt to discharge home with transport via POV when discharge orders are active. No discharge needs identified. Assessment: Pt who is independent at baseline. Plan: Pt to discharge home with transport via POV when discharge orders are active. No discharge needs identified. Paige Guadalupe MSW
--- NOTE | 2017-03-02 15:52 | DRSVH ---
[facility] [address] [place] [address] Echocardiogram Report Name: RASHAAD RUIZ LStudy Date: 03/02/2017 Height: 75 in Hospital Exam Location: [facility] Weight: 209 lb Gender: Male BSA: 2.2 m2 : 1940 Age: 77 yrs BP: 138/55 mm Hg Reason For Study: CVA Ordering Physician: Shahram Mckeon Performed By: Krzysztof Sheikh Referring Physician: BEVERLY ADAMS Interpretation Summary The left ventricle is normal in size. Left ventricular systolic function is normal without focal wall motion abnormalities. The ejection fraction is estimated to be 60-65%. The right ventricle is mildly dilated. Right ventricular systolic function is borderline reduced. The right ventricular systolic pressure is estimated at 37 mmHg assuming a right atrial pressure of 15 mm Hg. The left atrium is moderately dilated. The right atrium is mildly dilated. There is a small amount of bubbles seen in the left ventricle after 2-3 cycles. This is suggestive of a small PFO or right to left shunt. There is no significant valvular heart disease. The ascending aorta is mildly enlarged. Procedure: A two-dimensional transthoracic echocardiogram with color flow and Doppler was performed. The study quality was technically adequate. A saline contrast injection was performed to assess for cardiac shunting. There is no prior echocardiogram noted for this patient. The patient was in atrial fibrillation with heart rates between 53-70 bpm during the exam. Left Ventricle: The left ventricle is normal in size. There is normal left ventricular wall thickness. Left ventricular systolic function is normal without focal wall motion abnormalities. The ejection fraction is estimated to be 60-65%. Diastolic function could not be accurately assessed due to atrial fibrillation. Right Ventricle: The right ventricle is mildly dilated. Right ventricular systolic function is borderline reduced. Atria: The left atrium is moderately dilated. The right atrium is mildly dilated. There is no Doppler evidence for an atrial septal defect. There is a small amount of bubbles seen in the left ventricle after 2-3 cycles. This is suggestive of a small PFO or right to left shunt. Mitral Valve: The mitral valve leaflets are slightly calcified. There is mild mitral annular calcification. There is trace mitral regurgitation. Aortic Valve: The aortic valve is normal in structure and function. No aortic regurgitation is present. Tricuspid Valve: The tricuspid valve is normal. There is mild tricuspid regurgitation. The right ventricular systolic pressure is estimated at 37 mmHg assuming a right atrial pressure of 15 mm Hg. Pulmonic Valve: The pulmonic valve is not well visualized. There is no significant valvular heart disease. Great Vessels: The aortic root is normal size. The ascending aorta is mildly enlarged. The pulmonary artery is normal size. The IVC is dilated (diameter is greater than 2.1 cm) and it collapses less than 50% with a sniff. This suggests a high right atrial pressure of 15 mm Hg. Pericardium/ Pleura There is no pericardial effusion. There is no pleural effusion. MMode/2D Measurements & Calculations LA A4 area RA long axis LVOT diam: 2.2 cm RVD1 (basal) Ao root diam: 3.5 cm : 5.8 cm RA area asc Aorta Diam: 3.5 cm LA length (vol) Ao Arch Diam (Prox : 26.4 cm Trans): 3.2 cm IVC diam: 2.4 cm RA vol: 86.0 ml RA : 38.5 mm2 TAPSE: 1.7 cm Doppler Measurements & Calculations Ao V2 max MV E max jose Med Peak E' Jose TR max jose : 179.5 cm/sec : 114.2 cm/sec : 235.1 cm/sec Ao max PG E/E' med: 13.7 TR max PG : 13.0 mmHg Lat Peak E' Jose : 22.1 mmHg Ao mean PG E/E' lat: 10.5 LVOT Max Jose E/e' average: 12.1 : 150.5 cm/sec ARNOLD(I,D): 3.0 cm sev ratio Ao V2 mean LV V1 max PG ARNOLD indexed to BSA : 122.0 cm/sec (cm^2/m^2): 1.3 Ao V2 VTI: 36.7 cmLV V1 VTI: 29.6 cm ARNOLD(V,D): 3.1 cm2 Reading Physician:JACKIE
--- NOTE | 2017-03-02 18:10 | NUR ---
Discharge Patient left floor via wheelchair at 1800 to be driven home by family. All discharge information discussed with family including medications and follow up appointments. Patient will be going to Endo tomorrow am and was instructed to be NPO at midnight, to take BP medications w/a sip of water at 5am, and to hold all diabetes meds. Patient informed to check into endoscopy at 0715. IV d/c'd intact. All belongings left with patient.
--- NOTE | 2017-03-03 00:26 | PCM.DC.MED ---
Discharge Summary Date of Service Mar 02, 2017 Dates of Hospitalization Date of Hospital Admission Feb 28, 2017 at 19:24 Date of Discharge: Mar 02, 2017 Providers: Admitting Physician: Gagan Frankel MD Primary Care Physician: Dulce Mason MD Attending Physician: Gina Mckeon DO Diagnosis at Time of Discharge Diagnosis at Time of Discharge stroke like symptoms due to hypoglycemia, DM II (insulin dependent), HTN, CUATE, CAD, Afib Consultations PT/OT/ST Procedures XRay, CTs & MRIs CT ANGIO BRAIN NECK TPA IMPRESSION: 1. Deep and periventricular white matter changes and volume loss likely associated with chronic microvascular ischemic changes. 2. 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 3. Mild stenosis within the central cervical portion of the right internal carotid artery secondary to atheromatous calcification. 4. No other stenosis, occlusion, or aneurysm. 5. Large anterior mediastinal mass incompletely characterized on this limited view of the chest. Nonemergent, dedicated CT of the chest with contrast is recommended to further characterize this finding. Dictated by: Kim Christy M.D. on 02/28/2017 at 17:48 Approved by: Kim Christy M.D. on 02/28/2017 at 18:01 CT BRAIN WITHOUT CONTRAST ([id number]) IMPRESSION: 1. No acute intracranial findings. 2. Extensive findings likely associated with chronic microvascular ischemic changes. Dictated by: Kim Christy M.D. on 02/28/2017 at 17:18 Approved by: Kim Christy M.D. on 02/28/2017 at 17:19 X-RAY CHEST ONE VIEW, PORTABLE ([id number]) PROCEDURE: CT CHEST WITH CONTRAST ([id number]) INDICATIONS: mediastinal mass on mRA/CTA IMPRESSION: Large superior mediastinal mass as detailed above. Unclear if this is associated or originates from the right lobe of the thyroid. Substernal goiter, thyroid malignancy, malignant thymoma, metastatic disease, lymphoma in the differential among other possibilities. Consider further assessment with radioactive iodine thyroid scan, and/or surgical consultation for mediastinoscopy for further workup. Dictated by: Rock Van M.D. on 03/02/2017 at 12:36 Approved by: Rock Van M.D. on 03/02/2017 at 12:46 IMPRESSION: Newly apparent right apical opacity may represent early pneumonia versus loculated pleural effusion. Dictated by: Pierre Barragan M.D. on 02/28/2017 at 15:06 Approved by: Pierre Barragan M.D. on 02/28/2017 at 15:08 ECG 12 Lead Atrial fibrillation with rate of 67 Brief History Dilip Saini is a 77-year-old man with past medical issues significant for diabetes mellitus, atrial fibrillation on chronic anticoagulation although recently stopped warfarin due to an upcoming EGD 3 days ago, hypertension, obstructive sleep apnea, and coronary artery disease who presents with slurred speech and right facial droop. Patient has been experiencing symptoms including weakness, slurred speech, and facial droop on and off for the past 3 weeks. Today he called his PCP, Dr. Mason, and his periodontist who both encouraged him to present to the emergency department as he was currently experiencing slurred speech and right facial droop. Patient was previously diagnosed with TIA 5-6 years ago at which time they also diagnosed with atrial fibrillation for which he has been on chronic anticoagulation with warfarin. The patient recently stopped his warfarin 3 days ago due to an upcoming EGD to evaluate his ongoing dysphagia. On presentation to the ED his NIH score was 2 and vitals were temperature 36.5, pulse 77, respiratory rate 18, blood pressure 108/68, saturating 96% on room air. Initial labs included a glucose of 40, INR of 3.79, leukocytosis of 13.4 with 79% neutrophils, and negative troponin. CT of the brain was completed and [facility] neurology was called. Patient was not a candidate for TPA or thrombectomy due to supratherapeutic INR, intermittent symptoms, and comorbidities. [facility] recommended further evaluation with an MRI in the morning. Hospital Course Dilip Saini is a 77-year-old man with past medical issues significant for diabetes mellitus, atrial fibrillation on chronic anticoagulation although recently stopped warfarin due to an upcoming EGD 3 days ago, hypertension, obstructive sleep apnea, and coronary artery disease who presents with slurred speech and right facial droop. Admitted for CVA workup. Neurological symptoms due to hypoglyceic episode, active. - Not a candidate for TPA due to supratherapeutic INR and intermittent nature of symptoms. - Head CT without contrast showed no acute intracranial findings but extensive findings likely associated with chronic microvascular ischemic changes. - ABCD score was 3. - EKG showed atrial fibrillation with a rate of 67. - Monitor on telemetry. - CT angiogram brain and neck showed mild stenosis of the right internal carotid artery and moderate stenosis of the left internal carotid artery. - Lipid panel WNL, A1C=5.6 - Allow for permissive hypertension to not treat unless SBP >220 or DBP >120 - INR supratherapeutic. Warfarin will continue to be held. - Patient's home med simvastatin is restarted. - Speech and swallow evaluation showed no deficiencies - MR Angio stroke protocol showed:" No evidence of infarct or acute intracranial abnormality. 2. Moderate to severe cerebral volume loss and moderate chronic white matter small vessel ischemic changes." -- The day of discharge I called his and discussed his symptoms with her she has not noticed anything new prior to his coming to the hospital in terms of facial droop or symptoms she feels he is at his baseline. Patient also believes he is also at baseline. He says that he just called some doctors because he was not feeling good and he was told to go to the ER and he knows that he was hypoglycemic. -- PCP Dr. mantilla was contacted on the day of discharge, per our discussion, ordered CT Chest W contrast, to be reviewed by him. -- The patient's echocardiogram did show concern for patent foramen ovale. Patient has a periodontist. We will recommend that he be seen by the periodontist for follow-up in 2-3weeks Mediastinal mass noted on CTA, active -- Discussed with PCP, PCP will review the results of CT Chest W with patient in follow-up Hypoglycemia, present on admission, resolved. - Blood sugar was found to be 40 on presentation to the emergency department. - Patient was given applesauce and blood sugar subsequently improved. - We will continue to monitor with bedside glucose checks. -- Patient will be discharged on 6 units of Lantus at night plus glipizide 5 mg twice a day. His medications are reduced doses due to his reported hypoglycemic event prior to arrival to eD -- He is to hold metformin until 11/02/2016 night Supratherapeutic INR, present on admission, active. - Patient had stopped warfarin 3 days ago due to an upcoming EGD by Dr. Hayden on 03/03. - INR still remained elevated at 3.79. - Warfarin will continue to be held. - Repeat INR in the morning. -- INR=3.4 still supratherapeutic -- Pharmacy is not managing his INR here we recommended that patient hold off Coumadin for 2 days and then get it rechecked on 03/04 to be sent to Coumadin clinic or PCP Atrial fibrillation, present on admission, active. - Continue home regimen of amlodipine. - Patient on chronic anticoagulation and supratherapeutic as above. Coronary artery disease, present on admission, chronic. - Patient sees a periodontist in [place]. He states that 5-10 years ago a stent was attempted to be placed but was unsuccessful. He denies prior NC. Obstructive sleep apnea, present on admission, chronic. - Brother agreed to bring patient's CPAP machine in for him Diabetes mellitus insulin using, present on admission, chronic. - Metformin and glipizide will be held. - Glargine 6 units at bedtime. - Patient placed low-dose correctional scale. - Blood glucose will be closely monitored as patient was hypoglycemic on admission as noted above. --Her medications are adjusted as above PRN Medications - Acetaminophen as needed for mild pain/fever/headache - Bowel regimen as needed - Antiemetic as needed Patient is admitted under inpatient status with expected length of stay greater than 2 midnights due to severity of presenting symptoms, risk of adverse event, and complexity of treatment plan. Exam Vital Signs (Last) Date Time Temp Pulse Resp B/P Pulse Ox O2 Delivery O2 Flow Rate FiO2 03/02/17 12:38 36.5 68 22 123/63 97 Room Air Exam General: NAD, laying in bed HEENT: Mouth droop to right , very slight, EOM intact Heart: RRR, no s3/s4 murmur Lungs: CTa, No crackles or wheezes Abd: Non tender, normal bowel sounds Neuro: CN2-12 grossly normal, with the exception of mild right sided droop 1+ achilles reflexes PSych:No agitation Test 02/28/17 15:44 02/28/17 15:54 02/28/17 17:29 03/01/17 01:10 Hemoglobin A1c 5.6% (4.8-5.6) Troponin T < 0.010ug/L (0.0-0.011) Triglycerides Level 90mg/dL (0-149) Cholesterol Level 128mg/dL (100-199) LDL Cholesterol, Calculated 80.000mg/dL (0-99) VLDL Cholesterol 18.000mg/dL HDL Cholesterol 30mg/dL (>39) Cholesterol/HDL Ratio 4.27 (0.0-4.4) Alcohols < 10mg/dL (0-10) Total Bilirubin 0.5mg/dL (0.0-1.2) Aspartate Amino Transf (AST/SGOT) 30U/L (0-50) Alanine Aminotransferase (ALT/SGPT) 25U/L (0-44) Alkaline Phosphatase 118U/L (25-160) Total Protein 7.7g/dL (6.4-8.4) Albumin 3.9g/dL (3.4-5.0) Hold Grossman Top Tube Received (Received) Urine Color Yellow (YELLOW) Urine Appearance Clear (CLEAR,HAZY) Urine pH 5.5 (5.0-8.0) Urine Specific [place] 1.020 (1.003-1.035) Urine Protein Negativemg/dL (NEG,TRACE) Urine Glucose (UA) Negativemg/dL (NEGATIVE) Urine Ketones Negativemg/dL (NEGATIVE) Urine Occult Blood Trace (NEGATIVE) Urine Nitrite Negative (NEGATIVE) Urine Bilirubin Negative (NEGATIVE) Urine Urobilinogen Normalmg/dL (NORMAL) Urine Leukocyte Esterase Small (NEGATIVE) Urine RBC 0-2/hpf (0-2) Urine WBC 6-10/hpf (0-5) Urine Epithelial Cells Few/hpf (NONE-MOD) Urine Crystals None seen (NONE SEEN) Urine Bacteria Few/hpf (NONE-FEW) Urine Hyaline Casts None/lpf (NONE) Urine Granular Casts None seen (NONE SEEN) Urine Waxy Casts None seen (NONE SEEN) Urine Red Blood Cell Casts None seen (NONE SEEN) Urine White Blood Cell Casts None seen (NONE SEEN) Urine Mucus None seen (None Seen) Urine Trichomonas None seen (NONE SEEN) Urine Yeast None (NONE SEEN) Urinalysis Comment None Urine Culture Reflexed Indicated Urine Opiates Screen Negative Urine Methadone Screen Negative Urine Barbiturates Screen Negative Urine Amphetamines Screen Negative Urine Benzodiazepines Screen Negative Urine Cocaine Metabolite Screen Negative Urine Cannabinoids Screen Negative Magnesium Level 2.0mg/dL (1.6-2.6) Test 03/01/17 06:20 03/02/17 06:42 White Blood Count 12.8th/mm3 (3.8-10.1) Red Blood Count 3.95mil/mm3 (4.40-5.80) Hemoglobin 10.3g/dL (13.8-17.2) Hematocrit 32.6% (41.0-50.0) Mean Corpuscular Volume 82.5fL (81-100) Mean Corpuscular Hemoglobin 26.1pg (27.0-35.0) Mean Corpuscular Hemoglobin Concent 31.6% (32.0-37.0) Red Cell Distribution Width 15.4% (12.3-15.4) Platelet Count 262bil/L (150-400) Neutrophils (%) (Auto) 81.7% (40-74) Lymphocytes (%) (Auto) 9.0% (14-46) Monocytes (%) (Auto) 6.4% (4-12) Eosinophils (%) (Auto) 2.4% (0-5) Basophils (%) (Auto) 0.2% (0-3) Activated Partial Thromboplast Time 64.6sec (22.8-33.0) Sodium Level 140mEq/L (134-144) Potassium Level 3.8mEq/L (3.5-5.2) Chloride Level 103mEq/L (97-108) Carbon Dioxide Level 21mmol/L (18-29) Blood Urea Nitrogen 17mg/dL (8-27) Creatinine 0.92mg/dL (0.76-1.27) Estimat Glomerular Filtration Rate 85mL/min (>59) Glucose Level 96mg/dL (60-99) Calcium Level 9.1mg/dL (8.5-10.1) Prothrombin Time 41.3sec (8.1-12.5) Prothromb Time International Ratio 3.76ratio Discharge Medications Discharge Medications Amlodipine (Amlodipine) 5 Mg Tablet 5 MG PO DAILY Prescribed by: GINA MCKEON DO Aspirin (Aspirin) 81 Mg Tablet 81 MG PO QAM (Reported) Cholecalciferol (Vitamin D3) (Vitamin D3) 1,000 Unit Tab.chew 1,000 UNIT PO QAM (Reported) Cyanocobalamin/Folic Acid (Vitamin I66-Temrg Acid Tablet) 1 Each Tablet 1 EACH PO QAM (Reported) Fexofenadine (Fexofenadine) 60 Mg Tablet 120 MG PO QAM (Reported) Furosemide (Furosemide) 40 Mg Tablet 20 MG PO QAM (Reported) Glipizide (Glipizide) 5 Mg Tablet 5 MG PO BID Prescribed by: GINA MCKEON DO Insulin Glargine (Lantus U100 Insulin Vial) 100 Unit/Ml Vial 6 UNIT SUBQ HS Prescribed by: GINA MCKEON DO Lisinopril (Lisinopril) 10 Mg Tablet 10 MG PO BID (Reported) Metformin (Glucophage) 1,000 Mg Tablet 1,000 MG PO BIDWM (Reported) NPH, Human Insulin Isophane (HUMulin-N U100 Insulin Kwikpen) 100 Unit/1 Ml Insuln.pen 10 UNIT SUBQ HS (Reported) Paroxetine (Paroxetine) 10 Mg Tablet 10 MG PO HS (Reported) Pravastatin (Pravastatin) 80 Mg Tablet 80 MG PO HS (Reported) Saw [place] (Saw [place]) 160 Mg Capsule 160 MG PO QAM (Reported) As needed Acetaminophen (Acetaminophen) 325 Mg Tablet 650 MG PO Q4H PRN PRN For Pain ( Reported) Scopolamine (Transderm-Scop) 1 Each Patch.td72 1 EACH TD DIRECTED PRN PRN MOTION SICKNESS (Reported) USES WHEN GOES FISHING Followup Plan Follow-up plan F/U with PCP Dr. Mason in one week PCP to review medication changes, CT chest W contrast that was done to examine his mediastinal mass (as seen on other imaging done here at [facility]) and discuss the findings with patient. F/U with periodontist in 2-3 weeks Discharge Diet: Heart Healthy, Diabetic Discharge Activity: No restrictions Patient Instructions Please note changes to glipizide dosing and type of insulin. Please check BG, take OJ and call PCP if there is concern for low Blood glucose symtoms such as tremors, weakness. Please hold metformin for 48 hrs, may restart on the night of 03/04/17 Please note dose changes to amlodipine. Time spent 35 min Gina Mckeon DO Mar 02, 2017 13:40
== END 2017-03-02 18:00 | disposition home or self-care (01) | DRG 66 ==
LOC: SED 13:43 → MPC 19:24 → OBSVTOIN 19:24 → MPC 20:00 → MOC 03-01 16:02
PROVIDERS: ADMIT Internal Medicine; ATTEND Family Medicine
DX: I63.10 Cerebral infarction due to embolism of unspecified precerebral artery (principal); R47.02 Dysphasia; R29.810 Facial weakness; R40.2142 Coma scale, eyes open, spontaneous, at arrival to emergency department; R40.2362 Coma scale, best motor response, obeys commands, at arrival to emergency department; R40.2252 Coma scale, best verbal response, oriented, at arrival to emergency department; E11.649 Type 2 diabetes mellitus with hypoglycemia without coma; I25.10 Atherosclerotic heart disease of native coronary artery without angina pectoris; Z86.73 Personal history of transient ischemic attack (TIA), and cerebral infarction without residual deficits; Z79.01 Long term (current) use of anticoagulants; Z79.82 Long term (current) use of aspirin; Z87.891 Personal history of nicotine dependence; Z79.4 Long term (current) use of insulin

== ENCOUNTER 2017-03-03 00:24 | Day surgery (SDC) | payer MEDICARE, OTHER ==
[~2017-03-03 00:24] MED LIST changes: +ACET325T51 PO; +GLPZ5T PO; +INSU100V7 SUBQ; +METF1000 PO; +SCOP1PAT TD; +WARF5TAB7 PO
== END 2017-03-03 23:59 | disposition home or self-care (01) ==
LOC: END 00:24
PROVIDERS: ATTEND Surgery
DX: R13.10 Dysphagia, unspecified (principal); Z53.8 Procedure and treatment not carried out for other reasons

== ENCOUNTER 2017-03-17 14:59 | Inpatient (IN) | payer MEDICARE, OTHER ==
[~2017-03-17] VITALS: Ht 191.8 cm; Wt 96.3 kg
[~2017-03-17 14:59] MED LIST changes: -ACET325T51 PO; -GLIP10TA10 PO; +GLIP5POW MC; -GLPZ5T PO; -INSU100V7 SUBQ; -METF500T4 PO; -NPH,100I SUBQ; -SCOP1PAT TD; -TRAM50TA2 PO; -WARF1TAB6 PO
[2017-03-17 15:08] VITALS: BP 114/64; PULSE 70; RESP 16; O2SAT 99
[2017-03-17 15:58] LABS: BASOPHILS % (AUTO) 0.2 % (0-3); MONOCYTES % (AUTO) 4.9 % (4-12); Mean Corpuscular Hemoglobin 25.8 pg (27.0-35.0); Mean Corpuscular Volume 83.5 fL (81-100); NEUTROPHILS % (AUTO) 85.6 % (40-74); Platelet Count 280 bil/L (150-400)
--- NOTE | 2017-03-17 16:43 | ED.REPORT ---
HPI-General Illness Date of Service Mar 17, 2017 ED Provider: Maru Dee History of Present Illness: took pills in the office today to bring blood sugar up. off the insulin for a week. metformin is the only dm medication. BS was 61 in office today, was up to 108 before he left same thing happened 2 weeks ago. hosp here. Today after he went home became dizzy and feeling weak, came here, blood sugar 44 given juice and a sandwhich. Has a thyroid mass, awaiting biospy Nursing Notes Stated Complaint: DIZZY,LOW BLOOD PRESSURE Chief Complaint: General Complaint Nursing Notes Reviewed: Yes Allergies: Coded Allergies: Penicillins (Verified Allergy, Severe, SWELLING, 02/28/17) Scheduled Amlodipine (Amlodipine) 5 Mg Tablet 5 MG PO DAILY Aspirin (Aspirin) 81 Mg Tablet 81 MG PO QAM Cholecalciferol (Vitamin D3) (Vitamin D3) 1,000 Unit Tab.chew 1,000 UNIT PO QAM Cyanocobalamin/Folic Acid (Vitamin X38-Kzwjf Acid Tablet) 1 Each Tablet 1 EACH PO QAM Fexofenadine (Fexofenadine) 60 Mg Tablet 120 MG PO QAM Furosemide (Furosemide) 40 Mg Tablet 20 MG PO QAM Lisinopril (Lisinopril) 10 Mg Tablet 10 MG PO BID Metformin (Glucophage) 1,000 Mg Tablet 500 MG PO BIDWM Paroxetine (Paroxetine) 10 Mg Tablet 10 MG PO HS Pramipexole Dihydrochloride (Mirapex) 0.25 Mg Tablet 0.25 MG PO DAILY Pravastatin (Pravastatin) 80 Mg Tablet 80 MG PO HS Ranitidine (Ranitidine) 300 Mg Capsule 300 MG PO DAILY Saw [place] (Saw [place]) 160 Mg Capsule 160 MG PO QAM Warfarin Sodium (Warfarin Sodium) 5 Mg Tablet 2.5 MG PO DAILY Scheduled PRN Scopolamine (Transderm-Scop) 1 Each Patch.td72 1 EACH TD Q3 DAYS PRN PRN For Dizziness General Time Seen by MD: 16:41 Chief Complaint Other (low blood sugar) Hx Obtained From: Patient Sudden in Onset?: Yes Past Medical History Past Medical History Dysphagia Reports hx of TIAs Past Surgical History Endoscopy Smoking History Former Smoker Ambulatory Status Independent Review of Systems Full Review of Systems Constitutional: Denies: Chills Eyes: Denies: Blurred left, Blurred right Neurologic: Reports: Confusion (resolved after eating), Dizziness (resolved after eating) Physical Exam Vital Signs Vital Signs Date Time Temp Pulse Resp B/P Pulse Ox O2 Delivery O2 Flow Rate FiO2 03/17/17 19:26 36.7 58 18 113/61 97 Room Air 03/17/17 15:08 37.1 70 16 114/64 99 Room Air Initial VS: Reviewed, Vital signs normal General/Constitutional: Well-developed, Well-nourished Head / Eyes: Atraumatic, Normocephalic, PERRL ENT: Mucous membranes moist, Conjunctiva normal, No scleral icterus Neck: Supple, Non-tender, Full range of motion Respiratory: Breath sounds normal, Clear to auscultation, No respiratory distress Cardiovascular: Regular rate & rhythm, Heart sounds normal, Intact distal pulses Abdomen / GI: Soft, Non-tender, No guarding, No rebound, No distention Back: No CVA tenderness Lymphatic: No lymphadenopathy Extremities: Vascular intact, Neuro intact, No swelling, No tenderness Skin: Warm, Dry, No cyanosis Neurologic: Alert, Oriented, Nonfocal Psychiatric: Mood/affect normal, Behavior normal, Normal thought content General/Constitutional: Awake, Alert, No acute distress, Well appearing, Well developed, Well hydrated Head / Eyes: Atraumatic, Normocephalic, PERRL, EOMI Respiratory / Chest: Atraumatic, Breath sounds NL, Breath sounds = bilat, No respiratory distress Cardiovascular: Heart rate NL, Regular rhythm, Heart sounds NL, No gallop Abdomen: Atraumatic, Soft, Non-tender, McBurney's non-tender Interpretation & Diagnostics Lab Results Interpretation Result Diagram: 03/18/17 0520 03/18/17 0520 Test 03/17/17 15:34 Hematology Comments Iron Level 27ug/dL (35-150) Total Iron Binding Capacity 308ug/dL (250-450) Percent Iron Saturation 9%sat (15-50) Unsaturated Iron Binding 281.2ug/dL Vitamin B12 Level 612pg/mL (211-946) Folate 10.1ng/mL (>3.0) Thyroid Stimulating Hormone (TSH) 3.380uIU/mL (0.450-4.500) Free Thyroxine 0.97ng/dL (0.82-1.77) Hold Grossman Top Tube Received (Received) Re-Eval/Medical Decision Med Decision/Clinical Course 77 year old male with hypoglycemia. Patient is not on any insulin, having suffered stroke like symptoms 2 weeks ago which was attributed to hypoglycemia. No sign of any stroke. 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 I evaluated patient independently and agree with plan as above. In brief, 77 yo m h/o DM managed only on metformin at this time with persistent hypoglycemia today 60s to 40s despite glucose. Admitted for hypoglycemia. copies to: Dulce Mason MD, Sue ARNP Mar 17, 2017 16:43 Bill Hickey MD Mar 17, 2017 17:30 Chloride Level 102mEq/L (97-108) Carbon Dioxide Level 22mmol/L (18-29) Blood Urea Nitrogen 20mg/dL (8-27) Creatinine 1.01mg/dL (0.76-1.27) Estimat Glomerular Filtration Rate 76mL/min (>59) Glucose Level 64mg/dL (60-99) Calcium Level 9.5mg/dL (8.5-10.1) Total Bilirubin 0.5mg/dL (0.0-1.2) Aspartate Amino Transf (AST/SGOT) 30U/L (0-50) Alanine Aminotransferase (ALT/SGPT) 26U/L (0-44) Alkaline Phosphatase 127U/L (25-160) Total Protein 7.9g/dL (6.4-8.4) Albumin 4.0g/dL (3.4-5.0) Hold Grossman Top Tube Received (Received) Re-Eval/Medical Decision Med Decision/Clinical Course 77 year old male with hypoglycemia. Patient is not on any insulin, having suffered stroke like symptoms 2 weeks ago which was attributed to hypoglycemia. No sign of any stroke. 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 I evaluated patient independently and agree with plan as above. In brief, 77 yo m h/o DM managed only on metformin at this time with persistent hypoglycemia today 60s to 40s despite glucose. Admitted for hypoglycemia. copies to: Dulce Mason MD, Sue ARNP Mar 17, 2017 16:43 Bill Hickey MD Mar 17, 2017 17:30
[2017-03-17] MEDS ORDERED: Dextrose 5% 0.9% NaCl 1,000 ML IV ONE (17:25)
[2017-03-17 17:35] LABS: INR 1.42 ratio
[2017-03-17] MEDS ORDERED: SCOP1PAT TD (18:06)
[2017-03-17] MEDS ORDERED: Ondansetron 2 mg/mL 2 mL Inj IVPUSH PRN ×2 (19:25→19:50)
[2017-03-17] MEDS ORDERED: Alum-Mag Hydrox-Simeth 30 mL Suspension PO PRN ×2 (19:25→19:50)
[2017-03-17 19:26] VITALS: BP 113/61; PULSE 58; RESP 18; O2SAT 97
[2017-03-17] MEDS ORDERED: Polyethylene Glycol (PEG) 17 Gm Powder PO PRN (19:50)
--- NOTE | 2017-03-17 20:20 | NUR ---
Admit Patient arrived to floor at 2009. Patient A&OX3. Peripheral IV Patent. Patient states he is in no Pain, or nausea and is feeling much better. Vitals stable. Patients blood sugar 166. Care continues.
[2017-03-17 20:25] VITALS: BP 125/60; PULSE 65; RESP 20; O2SAT 97
[2017-03-17] MEDS: D5 0.45% NaCl + KCl 20 mEq/L 1,000 ML IV SCH (20:37)
--- NOTE | 2017-03-17 21:10 | PCM.HPMED ---
Subjective Date of Service Mar 17, 2017 Primary Provider: Admitting Physician: Gina Castillo DO Primary Care Physician: Dulce Mason MD Attending Physician: Gina Castillo DO Chief Complaint: Aphasia and low BG History of Present Illness: 69-year-old male with past medical history of diabetes who recently discontinued glipizide and insulin, atrial fibrillation on warfarin, hypertension, obstructive sleep apnea, and history of coronary artery disease who presented to the emergency department due to dizziness, weakness, and reported aphasia. Patient was seen by his PCP today with a noted blood glucose of 61. He was given sugar tablets to bring his blood glucose up to 108 before he left their office. On returning home he developed dizziness, weakness, aphasia and confusion that lasted approximately 5 minutes. He called his brother and a additional sugar which helped resolve his symptoms. Patient was admitted here recently with hypoglycemia and reported TIA without imaging evidence of infarct. At that time his glipizide and NPH was discontinued and he states he is only on metformin at this time. In emergency department he was given D5NS continued to improve. He does have a history of prior TIAs 5-6 years ago that were diagnosed at the same time his atrial fibrillation. He states that he is compliant with his warfarin and his INR on presentation was 1.42. Review of Systems: Complete review of systems performed; pertinent positives and negatives per history of present illness, all other systems reviewed and are negative Allergies Coded Allergies: Penicillins (Verified Allergy, Severe, SWELLING, 02/28/17) Home Medications Amlodipine Aspirin Furosemide Lisinopril Metformin Paroxetine Pramipexole Pravastatin Ranitidine Saw palmetto Warfarin Fexofenadine PMH Diabetes mellitus Hypertension Obstructive sleep apnea Atrial fibrillation on chronic anticoagulation Coronary artery disease. Normal myocardial perfusion scan September 2003 EF 60% . Cardiac cath in 2005. BPH History of end-stage renal disease status post hemodialysis now recovered History of TIAs Dysphagia Surgical History Endoscopy Cholecystectomy Polypectomy Family History Father of lung cancer at 72 Mother of MT at 80 Social History Hx Alcohol Use: Yes (RARE) Hx Substance Use: No Hx Tobacco Use: Yes (quit smoking in 1989) Smoking Status: Former Smoker Exam Vital Signs Vital Sign - Last Date Time Temp Pulse Resp B/P Pulse Ox O2 Delivery O2 Flow Rate FiO2 03/17/17 20:25 36.7 65 20 125/60 97 Room Air Exam General: Pleasant, age-appropriate male in no acute distress HEENT: PERRLA, EOMI, nonicteric, membranes moist Lymph: No lymphadenopathy Cardio: Regular rate and rhythm no murmurs rubs or gallops Respiratory: CTA bilaterally, no wheezes, no crackles Abdomen: Soft, positive bowel sounds, nontender, nondistended Extremities: No edema, 4.5/5 strength, sensation intact Psych: Appropriate mood and affect Neuro: CN II through XII intact, sensation intact throughout, negative Babinski , all other neurological evaluation is negative Skin: No rash Lab and Diagnostics Result Diagram: 03/17/17 1534 03/17/17 1534 Assessment & Plan 77-year-old male with recurrent hypoglycemia with neurological sequelae presents with transient aphasia and dizziness that resolved with glucose administration. T2DM with Hypoglycemia with neurological sequelae, present on admission, resolved. - Blood sugar was found to be 60's to 40's after glucose administration; etiology could be septic or malignant form thyroid mass (see below) - We will continue to monitor with bedside glucose checks. - No insulin or sulfonylureas tonight; consider correctional in basal in a.m. if necessary - Hold metformin metformin - Complete neurologic evaluation done on last admit; will not perform a symptoms are identical to previous hypoglycemic episode - If neurological symptoms return recommend full neurological workup - Strict glucose checks - TSH -Patient on D5NS Leukocytosis; Present on admission; ongoing -Hypoglycemic could be due to developing sepsis; noted that this seems to be a chronic issue -Denies ongoing fever, chills, diarrhea, nausea, vomiting -Also denies dysuria; will order urine analysis and culture -Order blood cultures -We will hold empiric antibiotics at this time due to patient remained asymptomatic and the duration of the leukocytosis Mediastinal mass noted on CTA, present on admission; ongoing -Diagnosed on 03/[address] of the chest with contrast;? This could be related to the chronic leukocytosis -Radiology uncertain if this originates in the right lobe or the thyroid. -We will check TSH -Recent Thyroid US 03/10/17 was highly suspicious for right mass -Recommend FNA with interventional radiology Atrial fibrillation on subtherapeutic warfarin, present on admission, active. - Warfarin per pharmacy; presented with a INR of 1.4 - Rate is controlled - Previous echo showed concern for PFO - Patient on heparin until therapeutic Hx of CAD; present on admission; stable - No reported chest pain with the events or shortness of breath - Patient sees a plate sensitizer in [place]. He states that 5-10 years ago a stent was attempted to be placed but was unsuccessful. - He denies prior MT - If neurological or CP reoccur start plavix Hypertension-continue home amlodipine and lisinopril and for spread CUATE- has CPAP with him for night time use Disposition: Patient has been admitted to the general medical floor under observation DNR/DNI Pain Evaluation: Adequate Pain Control VTE Prophylaxis: Sub-Q Heparin (Unfractionated) Resuscitation Status: DNR/DNI:Do Not Resuscitate/Intubate Attending Statement The patient was seen and examined together with Dr. Sun on 03/17 and I agree with the history, exam and plan as outlined in the note above. Tigre Sun DO Mar 17, 2017 21:10 Demond Gu MD Mar 18, 2017 19:27
[2017-03-17 22:13] LABS: Unsaturated Iron Binding 281.2 ug/dL
[2017-03-18] MEDS: Heparin 5,000 Unit/mL Inj SUBQ SCH ×4 (00:28→23:53)
[2017-03-18 00:35] VITALS: BP 120/67; PULSE 65; RESP 18; O2SAT 97
[2017-03-18 05:01] VITALS: BP 118/71; PULSE 56; RESP 20; O2SAT 97
[2017-03-18 05:44] LABS: BASOPHILS % (AUTO) 0.3 % (0-3); EOSINOPHILS % (AUTO) 2.4 % (0-5); Mean Corpuscular Hemoglobin 25.8 pg (27.0-35.0); NEUTROPHILS % (AUTO) 79.7 % (40-74); Platelet Count 218 bil/L (150-400)
[2017-03-18 05:53] LABS: INR 1.43 ratio
[2017-03-18 06:31] LABS: Magnesium 1.7 mg/dL (1.6-2.6)
[2017-03-18] MEDS: D5 0.45% NaCl + KCl 20 mEq/L 1,000 ML IV SCH ×2 (06:39→16:33)
[2017-03-18 09:32] VITALS: BP 103/66; PULSE 60; RESP 18; O2SAT 100
[2017-03-18] MEDS ORDERED: Glucose 40% Oral Gel 15 Gm Tube PO PRN (12:45)
[2017-03-18 13:19] VITALS: BP 135/74; PULSE 59; RESP 18; O2SAT 95
--- NOTE | 2017-03-18 15:14 | NUR ---
KAILEY explained and signed. Copy of KAILEY and Medicare self administered medication information given to pt.
[2017-03-18] MEDS ORDERED: Insulin LISPRO 300 Unit/3 mL Inj SUBQ SCH (17:30)
[2017-03-18 17:47] VITALS: BP 139/68; PULSE 63; RESP 16; O2SAT 95
--- NOTE | 2017-03-18 18:15 | NUR ---
Mobility / Thyroid Pt remained in bed most of the day shift, getting up only to use the urinal or bathroom. Pt slept much of the afternoon. Denies any dizziness or weakness. No c/o pain. Cooperative with care. Pt asked about his TSH results and is concerned about keeping his appointment for a fine needle biopsy of the thyroid. Biopsy is scheduled for Monday (as outpatient). Advised pt that his TSH was within normal limits. Called ultrasound to see if pt was scheduled with them for a biopsy on Monday. They do not show this pt on their schedule. Care continues.
[2017-03-18] MEDS ORDERED: Glucagon 1 mg/mL Inj IV PRN (19:20)
--- NOTE | 2017-03-18 19:56 | PCM.CHPMED ---
Subjective Date of Service: Mar 18, 2017 Primary Physician: Admitting Physician: Gina Castillo DO Primary Care Physician: Dulce Mason MD Attending Physician: Gina Castillo DO Chief Complaint: Chief Complaint: Initial Endocrinology inpatient consultation. I was asked by Dr. Castillo to evaluate this 77-year-old man who presents with hypoglycemia. History of Present Illness: Mr. Saini has had diabetes for approximately 3 or more years. He has been treated with metformin, glipizide, and split mixed insulin for at least 2 years. He does not check his blood glucose regularly. He reports being clinically asymptomatic until approximately 1 month ago. At that time he began to experience episodes of clumsiness, impaired gait, and slurred speech. The symptoms generally occurred in morning and early afternoon. He did not check his blood sugar at the time of these symptoms. He noted that these symptoms improved with eating food. He was subsequently evaluated primary care provider and noted to have blood sugar of 61. He has been checking blood glucoses regularly for the past 2 weeks. He reports consistent morning blood sugars of 50-60, similar values at lunch, and usually 80-100 prior to dinner. He stopped insulin approximately 2 weeks ago. He continued on glipizide which he discontinued 3 days prior to admission. He has had no nocturnal symptoms. He does not experience episodes of diaphoresis, tremulousness, hunger or syncope. He has had no retinal, renal or neuropathy complications of his diabetes. Prior to the past 2 weeks he does not check his home blood glucose. 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 Is scheduled for fine-needle aspiration biopsy of this on 03/20. He is concerned that this is somehow responsible for his hypoglycemic symptoms. Review of Systems: Systems were reviewed with no additional findings except as noted in history of present illness PMH Past Medical History # Type II diabetes mellitus # Atrial fibrillation # Hypertension on amlodipine, lisinopril and furosemide # Coronary artery disease on pravastatin and low-dose aspirin # CUATE # GERD on ranitidine # RLS Bedside Blood Glucose: 262 Home Medications Metformin 1000 twice a day, glipizide 10 mg twice a day, insulin discontinued Other medications as noted in the PMH. Allergies: Coded Allergies: Penicillins (Verified Allergy, Severe, SWELLING, 02/28/17) Family History Family History There is no family history of hypercalcemia, neck surgery or pancreatic surgery. Social History Hx Alcohol Use: Yes (RARE)Hx Substance Use: NoHx Tobacco Use: Yes (quit smoking in 1989) Smoking Status: Former Smoker Exam Vital Signs Vital Sign - Last Date Time Temp Pulse Resp B/P Pulse Ox O2 Delivery O2 Flow Rate FiO2 03/18/17 17:47 36.9 63 16 139/68 95 Room Air Intake and Output 03/17/17 03/17/17 03/18/17 Cumulative From/Thru 14:59 22:59 06:59 03/17/17 15:08 - 03/18/17 06:01 Intake Total 225 ml 1206 ml 1431 ml Balance 225 ml 1206 ml 1431 ml IV Total 225 ml 1206 ml 1431 ml General: Generally healthy appearing elderly man no acute distress HEENT: sclerae anicteric, oral mucosa dry Neck: no JVD; unable to palpate goiter which seems to be low-lying and retrosternal Chest: clear to auscultation Cardiac: S1S2, no murmur Abdomen: BS normal, non-tender, no hepatomegaly Extremities: No pedal edema Neuro: A&O, cranial nerves symmetric, motor strength 5/5, coordination normal, reflexes 2+ upper extremity trace lower Lab and Diagnostics Labs Capillary blood glucose data: 03/17: 67, 63, 112, 120, 166 03/18: 123, 133, 229, 262 (confounded by administration of IV glucose.) Result Diagram: 03/18/17 0520 03/18/17 0520 Assessment & Plan Assessment Mr. 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 He has also been noted to have hypoglycemia, with self monitored blood glucoses in range of 50-60. The temporal relationship of hypoglycemia to his episodes of neurologic dysfunction has not been established, and he has not filled Whipple's triad. His history is complicated by the use of sulfonylureas and insulin therapy. The puzzling part of this history is that he tolerated these medications well for several years and has only recently experienced multiple episodes of transient neurologic dysfunction and moderate hypoglycemia. Pretest probability of pathological hypoglycemia due to insulinoma, or other paraneoplastic etiologies , is very low. The pretest probability that this is unusual sensitivity to diabetic medications is high. At this point, glipizide has been discontinued for a sufficient period of time that he may be tested without this confounding factor. Since his symptoms have been severe enough to warrant hospitalization I believe a formal hypoglycemic fasting protocol is indicated. RECOMMENDATIONS: #1 discontinue all antidiabetic therapy including metformin, sitagliptin, glipizide, insulin now and observe without correction unless blood glucose exceeds 400 #2 beginning at 7 a.m. on 03/19/17 discontinue all intravenous glucose #3 beginning at 7 a.m. on 03/19/17 patient should be nothing by mouth except for water and medications #4 capillary blood glucose check every 2 hours while fasting until blood glucose less than 75 mg per DL, then every 1 hour #5 continue to observe with hourly capillary blood glucose until blood glucose is less than 45 MG per DL #6 at that point a stat blood draw is performed for: Insulin, proinsulin, C- peptide, blood glucose, beta hydroxybutyrate #7 administered glucagon 1 mg IV stat after the above blood tests are obtained #8 collect blood samples at 10, 20 and 30 minutes after glucagon administration for: Blood glucose and beta hydroxybutyrate #9 after the 30 minute collection he may receive oral glucose, intravenous glucose and resume a diabetic diet. I will discuss the above protocol with daytime charge nurse on 03/19. Total that time he may be observed with routine bedside blood glucose checks. I can be reached for questions on the [place] hospitalist pager, oriented Thank you for this most interesting consult. Problems: Pain Evaluation: Adequate Pain Control VTE Prophylaxis: Sub-Q Heparin (Unfractionated) VTE Mechanical Devices: Intermittant Pneumatic CD Resuscitation Status: DNR/DNI:Do Not Resuscitate/Intubate Time spent 70 minutes in patient assessment in care coordination on the unit Isacc Amaya MD Mar 18, 2017 19:56
[2017-03-18 20:29] VITALS: BP 135/69; PULSE 66; RESP 20; O2SAT 95
--- NOTE | 2017-03-19 01:19 | PCM.PNMED ---
Subjective Date of Service Mar 18, 2017 Subjective Patient is seen and examined. He seemingly upset about his mediastinal mass, very concerned about what it is and his prognosis. He thinks that his hypoglycemia is secondary to his neck mass. Is frustrated because no one knows why he is hypoglycemic. I spent a lot of time discussing how his medications were slowly discontinued as providers did not always know how he ate or checked BGa t home. After a recent admission at [facility], He was discharged home on reduced insulin dose, glipizide reduced dose. He followed up with PCP, who noted him to be hypoglycemic, instructed him to stop insulin but continue glipizide. He stopped glipizide on evening. Came to the ER by her taking metformin because he was still hypoglycemic. He had put him on D5 normal saline 100 mL/h , on the floor slowly improved to the point he needed some sliding scale coverage. Patient agreed to that Dr. Amaya see him Exam Vital Signs Vital Sign - Last Date Time Temp Pulse Resp B/P Pulse Ox O2 Delivery O2 Flow Rate FiO2 03/18/17 13:19 36.7 59 18 135/74 95 Room Air Intake and Output 03/17/17 03/17/17 03/18/17 Cumulative From/Thru 15:00 23:00 07:00 03/17/17 15:08 - 03/18/17 06:01 Intake Total 225 ml 1206 ml 1431 ml Balance 225 ml 1206 ml 1431 ml IV Total 225 ml 1206 ml 1431 ml Exam General: Irritated, age-appropriate male in no acute distress HEENT: PERRLA, EOMI, nonicteric, membranes moist Lymph: No lymphadenopathy Cardio: Regular rate and rhythm no murmurs rubs or gallops Respiratory: CTA bilaterally, no wheezes, no crackles Abdomen: Soft, positive bowel sounds, nontender, nondistended Extremities: No edema, 4.5/5 strength, sensation intact Psych: appears to be worried and angry Neuro: No focal deficits Skin: No rash IVs and Medications IV Fluids D5 NSS 100 cc/hr Medications Reviewed: Medications were reviewed in detail Lab and Diagnostics Result Diagram: 03/18/1751903/18/17519 Assessment & Plan 77-year-old male with recurrent hypoglycemia with neurological sequelae presents with transient aphasia and dizziness that resolved with glucose administration. T2DM with Hypoglycemia with neurological sequelae, present on admission, resolved. - Blood sugar was found to be 60's to 40's after glucose administration; - We will continue to monitor with bedside glucose checks. - No insulin or sulfonylureas - Hold metformin metformin - Complete neurologic evaluation done on last admit; will not perform a symptoms are identical to previous hypoglycemic episode - If neurological symptoms return recommend full neurological workup - Strict glucose checks - TSH WNL -Patient on D5NS 100 cc/hr -- Dr. Amaya from endocrinology was consulted, he recommends that patient be given no insulin, placed him on special glucose monitoring, -- Dr. Amaya would like to discontinue Januvia for now. I informed him PHARMACY does not have exenatide -- The patient his recommendations, he still feels that it is patients for management of his blood glucoses what is causing him trouble regardless of what he is feeling about his neck mass Leukocytosis; Present on admission; resolved -Hypoglycemic could be due to developing sepsis; noted that this seems to be a chronic issue -Denies ongoing fever, chills, diarrhea, nausea, vomiting -Also denies dysuria; will order urine analysis and culture -Order blood cultures -We will hold empiric antibiotics at this time due to patient remained asymptomatic and the duration of the leukocytosis Mediastinal mass noted on CTA, present on admission; ongoing -Diagnosed on 03/[address] of the chest with contrast;? This could be related to the chronic leukocytosis -Radiology uncertain if this originates in the right lobe or the thyroid. -We will check TSH -Recent Thyroid US 03/10/17 was highly suspicious for right mass: This may need to be deferred until his cyst discharge, patient is 4 months staying in the hospital until his biopsies done -Recommend FNA with interventional radiology: This may need to be deferred until the discharge, patient is firm on staying in the hospital until his biopsies are done. "All hospital case about is money money money" Atrial fibrillation on subtherapeutic warfarin, present on admission, active. - Warfarin per pharmacy; presented with a INR of 1.42-->1.43, not sure if he is taking Coumadin properly - Rate is controlled - Previous echo showed concern for PFO - Patient on heparin until therapeutic Hx of CAD; present on admission; stable - No reported chest pain with the events or shortness of breath - Patient sees a geological survey field assistant in [place]. He states that 5-10 years ago a stent was attempted to be placed but was unsuccessful. - He denies prior CA Hypertension-continue home amlodipine and lisinopril and for spread CUATE- has CPAP with him for night time use Disposition: Patient has been admitted to the general medical floor under observation. I am concerned the patient is actually not using her taking medications properly, stated he feels his medical pruritus and failing to take care of him. He did think me at the end of the interview but appears to be quite flustered DNR/DNI VTE Prophylaxis: Sub-Q Heparin (Unfractionated) VTE Mechanical Devices: Intermittant Pneumatic CD Resuscitation Status: DNR/DNI:Do Not Resuscitate/Intubate Time spent 30 minutes Gina Castillo DO Mar 18, 2017 17:26
[2017-03-19 01:20] VITALS: BP 121/75; PULSE 83; RESP 20; O2SAT 97
[2017-03-19 03:32] LABS: APPEARANCE,URINE CLEAR (CLEAR,HAZY); COLOR,URINE YELLOW (YELLOW); OCCULT BLOOD,URINE NEGATIVE (NEGATIVE)
[2017-03-19 07:01] VITALS: BP 142/77; PULSE 55; RESP 16; O2SAT 96
--- NOTE | 2017-03-19 07:27 | NUR ---
fasting hypoglycemia protocol Initiated at 0700; patient placed npo except water and meds, IV fluids stopped. [facility] Tammy informed of protocol.
[2017-03-19 08:53] VITALS: BP 135/70; PULSE 87
[2017-03-19] MEDS: Heparin 5,000 Unit/mL Inj SUBQ SCH ×2 (09:20→16:46)
[2017-03-19 15:19] VITALS: BP 131/78; PULSE 64; RESP 17; O2SAT 97
--- NOTE | 2017-03-19 15:43 | NUR ---
Social Work: Initial Assessment/Multi-Disciplinary Rounds D: EMR reviewed. Please see Initial Assessment linked to this note for more information. Pt is a 77 y/o male admitted [facility] for hypoglycemia per H&P. Pt has a readmit risk score of 4. SW met with pt at bedside to conduct initial assessment. Pt was alert and oriented x3. SW explained role and wrote phone number on white board. SW provided "Your Discharge Planning Checklist" and encouraged pt to contact SW for any discharge planning questions. Pt's insurance is Medicare and [employer]. PCP is Dulce Mason MD. Pt gave verbal consent to contact spouse Rosalina Saini [phone] for discharge planning. DPOA/advanced directive ppw discussed - ppw provided and SW encouraged pt to provide a copy to the hospital once complete. Pt owns a CPAP machine and no other DME. Pt is independent with all ADLs. Pt discussed in multidisciplinary rounds. Per multidisciplinary rounds, pt is not medically stable for discharge. Pt to receive work-up following hypoglycemic protocol and will likely remain hospitalized for 1-2 more days - no SW needs identified, no MD orders received. A: SW assessed pt's capacity for self-care. SW does not have any concerns for pt's capacity for self-care. Pt is independent with ADLs at baseline. Pt does not have any concerns regarding discharge at this time. Pt feels safe discharging home and will remain independent. P: Pt likely to discharge home with spouse to transport via POV. No SW needs identified. No MD orders received. SW will continue to follow for needs. ROBERTO Durán Addendum: 03/19/17 at 1550 by LES OVIEDO Amended: Links added.
--- NOTE | 2017-03-19 17:43 | NUR ---
Inpatient status effective today, VERONIKA signed.
--- NOTE | 2017-03-19 18:38 | PCM.CHPMED ---
Subjective Date of Service: Mar 19, 2017 Primary Physician: Admitting Physician: Gina Castillo DO Primary Care Physician: Dulce Mason MD Attending Physician: Gina Castillo DO Chief Complaint: Chief Complaint: Follow-up to Endocrinology 03/18/17 inpatient consultation. The patient is tolerated fasting with no neurologic or other hypoglycemic symptoms today. Blood sugars since this morning have been 147, 148, 146, 124, 118, 109. PMH Bedside Blood Glucose: 109 Allergies: Coded Allergies: Penicillins (Verified Allergy, Severe, SWELLING, 02/28/17) Social History Hx Alcohol Use: Yes (RARE)Hx Substance Use: NoHx Tobacco Use: Yes (quit smoking in 1989) Smoking Status: Former Smoker Exam Vital Signs Vital Sign - Last Date Time Temp Pulse Resp B/P Pulse Ox O2 Delivery O2 Flow Rate FiO2 03/19/17 15:19 36.7 64 17 131/78 97 Room Air Intake and Output 03/18/17 03/18/17 03/19/17 Cumulative From/Thru 15:00 23:00 07:00 03/17/17 15:08 - 03/19/17 05:26 Intake Total 500 ml 700 ml 1740 ml 4371 ml Output Total 600 ml 1175 ml 1775 ml Balance -100 ml -475 ml 1740 ml 2596 ml Intake Oral 500 ml 700 ml 1200 ml IV Total 1740 ml 3171 ml Output Urine Total 600 ml 1175 ml 1775 ml # Voids 3 3 # Bowel Movements 0 0 0 Lab and Diagnostics Result Diagram: 03/18/17 0520 03/18/17 0520 Assessment & Plan Assessment Mr. 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 He has also been noted to have hypoglycemia, with self monitored blood glucoses in range of 50-60. The temporal relationship of hypoglycemia to his episodes of neurologic dysfunction has not been established, and he has not filled Whipple's triad. His history is complicated by the use of sulfonylureas and insulin therapy. The puzzling part of this history is that he tolerated these medications well for several years and has only recently experienced multiple episodes of transient neurologic dysfunction and moderate hypoglycemia. Pretest probability of pathological hypoglycemia due to insulinoma, or other paraneoplastic etiologies , is very low. The pretest probability that this is unusual sensitivity to diabetic medications is high. At this point, glipizide has been discontinued for a sufficient period of time that he may be tested without this confounding factor. Since his symptoms have been severe enough to warrant hospitalization I believe a formal hypoglycemic fasting protocol is indicated. Interval assessment on 03/19: Extended fasting studies resulted in no hypoglycemia. In light of the high pretest probability that this was medication induced, I do not believe we need to continue with prolonged fasting protocol. I discussed this with the family and they agree that medications are the likely cause. At this point primary issue is to switch to a non-hypoglycemic diabetic regimen. Options include metformin, DPP 4 inhibitor, GLP-1 agonist, pioglitazone, and/or judicious use of insulin as needed if the radius options are not effective. RECOMMENDATIONS: #1 discontinue fasting hypoglycemia protocol at this point #2 resume diabetic diet #3 initiate metformin 1000 mg twice a day with Januvia 25-50 mg every morning #4 resume routine 4 times a day blood sugar checks #5 planned to assess glycemic control through midday tomorrow. If acceptable he could be discharged home with follow-up in endocrine clinic from my perspective. I can be reached for questions on the yellow hospitalist pager, or at Thank you for this most interesting consult. Problems: Pain Evaluation: Adequate Pain Control VTE Prophylaxis: Sub-Q Heparin (Unfractionated) VTE Mechanical Devices: Intermittant Pneumatic CD Resuscitation Status: DNR/DNI:Do Not Resuscitate/Intubate Time spent 25 minutes Isacc Amaya MD Mar 19, 2017 18:38
--- NOTE | 2017-03-19 18:46 | NUR ---
Hypoglycemic Protocol Hypoglycemic protocol done per orders. Blood glucose charted. Pt never dropped below 109 or showed any s/s hypoglycemia.
[2017-03-19 20:21] VITALS: BP 140/70; PULSE 65; RESP 18; O2SAT 94
--- NOTE | 2017-03-19 22:04 | PCM.PNMED ---
Subjective Date of Service Mar 19, 2017 Subjective He is much more subdued mood today. Dr. Amaya's glucose test is done and patient did not need treatment for hyper or hypoglycemia during fasting. Patient is willing to reschedule his outpatient procedures for his thyroid mass Exam Vital Signs Vital Sign - Last Date Time Temp Pulse Resp B/P Pulse Ox O2 Delivery O2 Flow Rate FiO2 03/19/17 20:21 36.6 65 18 140/70 94 Room Air Intake and Output 03/18/17 03/18/17 03/19/17 Cumulative From/Thru 15:00 23:00 07:00 03/17/17 15:08 - 03/19/17 05:26 Intake Total 500 ml 700 ml 1740 ml 4371 ml Output Total 600 ml 1175 ml 1775 ml Balance -100 ml -475 ml 1740 ml 2596 ml Intake Oral 500 ml 700 ml 1200 ml IV Total 1740 ml 3171 ml Output Urine Total 600 ml 1175 ml 1775 ml # Voids 3 3 # Bowel Movements 0 0 0 Exam General: Irritated, age-appropriate male in no acute distress HEENT: PERRLA, EOMI, nonicteric, membranes moist Lymph: No lymphadenopathy Cardio: Regular rate and rhythm no murmurs rubs or gallops Respiratory: CTA bilaterally, no wheezes, no crackles Abdomen: Soft, positive bowel sounds, nontender, nondistended Extremities: No edema, 4.5/5 strength, sensation intact Psych: appears to calm Neuro: No focal deficits Skin: No rash IVs and Medications Medications Reviewed: Medications were reviewed in detail Lab and Diagnostics Result Diagram: 03/18/1751903/18/17519 Assessment & Plan 77-year-old male with recurrent hypoglycemia with neurological sequelae presents with transient aphasia and dizziness that resolved with glucose administration. T2DM with Hypoglycemia with neurological sequelae, present on admission, resolved. - Blood sugar was found to be 60's to 40's after glucose administration; - We will continue to monitor with bedside glucose checks. - No insulin or sulfonylureas - Hold metformin metformin - Complete neurologic evaluation done on last admit; will not perform a symptoms are identical to previous hypoglycemic episode - If neurological symptoms return recommend full neurological workup - Strict glucose checks - TSH WNL -Patient on D5NS 100 cc/hr -- Dr. Amaya from endocrinology was consulted, he recommends that patient be given no insulin, placed him on special glucose monitoring, after this test essentially ruled out that patient does not have problems with abnormal insulin production of fasting, test was discontinued on 03/19\ -- Dr. 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 This could be related to the chronic leukocytosis -Radiology uncertain if this originates in the right lobe or the thyroid. -We will check TSH -Recent Thyroid US 03/10/17 was highly suspicious for right mass: This may need to be deferred until his cyst discharge, -Recommend FNA with interventional radiology: This will be deferred until the discharge, Atrial fibrillation on subtherapeutic warfarin, present on admission, active. - INR of 1.42-->1.43 -- It appears no pharmacy consult was not placed at the time of admission, I will go ahead and started now such that he will get a dose on 03/19. Pharmacy is asked to discontinue heparin if 03/19 AM noticed therapeutic - Rate is controlled - Previous echo showed concern for PFO - Patient on heparin until therapeutic Hx of CAD; present on admission; stable - No reported chest pain with the events or shortness of breath - Patient sees a social security assessor in [place]. He states that 5-10 years ago a stent was attempted to be placed but was unsuccessful. - He denies prior [place] Hypertension-continue home amlodipine and lisinopril and for spread CUATE- has CPAP with him for night time use Disposition: Patient has been admitted to the general medical floor under observation. I am concerned the patient is actually not using her taking medications properly, stated he feels his medical pruritus and failing to take care of him. He did think me at the end of the interview but appears to be quite flustered DNR/DNI Pain Evaluation: Adequate Pain Control VTE Prophylaxis: Sub-Q Heparin (Unfractionated) VTE Mechanical Devices: Intermittant Pneumatic CD Resuscitation Status: DNR/DNI:Do Not Resuscitate/Intubate Time spent 25 min Gina Castillo DO Mar 19, 2017 22:04 Gina Castillo DO Mar 19, 2017 22:04
[2017-03-19 23:18] LABS: INR 1.35 ratio
[2017-03-20 00:46] VITALS: BP 138/76; PULSE 77; RESP 18; O2SAT 95
[2017-03-20] MEDS: Heparin 5,000 Unit/mL Inj SUBQ SCH (00:47)
--- NOTE | 2017-03-20 04:35 | NUR ---
Blood glucose Hypoglycemia trial cancelled by dinnertime, pt allowed to resume diabetic diet. Blood glucose has remained >100 throughout night. No new complaints. Hourly rounding ongoing.
[2017-03-20 05:48] VITALS: BP 143/73; PULSE 67; RESP 18; O2SAT 95
[2017-03-20 06:38] LABS: Mean Corpuscular Hemoglobin 25.9 pg (27.0-35.0); Mean Corpuscular Volume 82.4 fL (81-100)
[2017-03-20 07:30] LABS: INR 1.35 ratio
[2017-03-20] MEDS ORDERED: METF500T PO (08:02)
[2017-03-20] MEDS ORDERED: SITA50TA PO (08:02)
--- NOTE | 2017-03-20 11:06 | PCM.DIMED ---
Discharge Instructions Date of Service Mar 20, 2017 Dates of Hospitalization Mar 17, 2017 at 19:29 Discharge Diagnosis Discharge Diagnosis Hypoglycemia charli Diabetic patient, mediastinal mass, thyroid mass, afib on coumadin, CAD, CUATE Diet Discharge Diet: Heart Healthy, Diabetic Activity Discharge Activity: Limited until seen by PCP Call your provider Call your provider for: Fever or Chills, Shortness of breath, Bleeding, Chest pain, Vomitting, Excessive diarrhea, Weakness (unilateral), Other Patient Instructions Patient Instructions Please follow up with [facility] center at [facility] w/ Dr Christy for your biopsy procedures, which you have scheduled as outpatient. Please f/u with your PCP closely via phone and an appt in 3 days (03/23/17) regarding your coumadin dosing. Please note your metformin is increased and a new medication januvia is added F/U with Dr. Amaya or Dr. Hernandez in 2 weeks for Diabetes II, check your BG twice a day, as instructed by them and keep a log HH RN care is requested 5 times a week to take car eof patient's medication regimen as this is becoming more complicated to him Follow-up plan F/U with Dr. Mason on 03/23/17 as previously scheduled F/U with Interventional Radiology this afternoon for your biopsy procedures Gina Castillo DO Mar 20, 2017 11:06
[2017-03-20] MEDS ORDERED: FERR-74 PO (11:21)
--- NOTE | 2017-03-20 11:23 | PCM.DC.MED ---
Discharge Summary Date of Service Mar 20, 2017 Dates of Hospitalization Date of Hospital Admission Mar 17, 2017 at 19:29 Date of Discharge: Apr 20, 2017 Providers: Admitting Physician: Gina Mckeon DO Primary Care Physician: Dulce Mason MD Attending Physician: Gina Mckeon DO Diagnosis at Time of Discharge Diagnosis at Time of Discharge Hypoglycemia charli Diabetic patient, mediastinal mass, thyroid mass, afib on coumadin, CAD, CUATE Consultations Endocrinology Hospital Course 77-year-old male with recurrent hypoglycemia with neurological sequelae presents with transient aphasia and dizziness that resolved with glucose administration. T2DM with Hypoglycemia with neurological sequelae, present on admission, resolved. - Blood sugar was found to be 60's to 40's after glucose administration; - We will continue to monitor with bedside glucose checks. - No insulin or sulfonylureas - Hold metformin metformin - Complete neurologic evaluation done on last admit; will not perform a symptoms are identical to previous hypoglycemic episode - If neurological symptoms return recommend full neurological workup - Strict glucose checks - TSH WNL -Patient was initially put on D5NS 100 cc/hr -- Dr. Amaya from endocrinology was consulted, he recommends that patient be given no insulin, placed him on special glucose monitoring, after this test essentially ruled out that patient does not have problems with abnormal insulin production of fasting, test was discontinued on 03/19/17 -- Dr. 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 This could be related to the chronic leukocytosis -Radiology uncertain if this originates in the right lobe or the thyroid. -We will check TSH -Recent Thyroid US 03/10/17 was highly suspicious for right mass: This may need to be deferred until his discharge, -Recommend FNA with interventional radiology: This will be deferred until the discharge, Atrial fibrillation on subtherapeutic warfarin, present on admission, active. - INR of 1.42-->1.43-->1.35 - Rate is controlled - Previous echo showed concern for PFO - Patient on heparin SQ -- called PCP Dr. Mason who asks to not change is plans for patient's bridging , he wants to see pt on 03/23/17, he says he is also worried about the GI bleed. -- ASked pt to discuss coumadin with his PCP Hx of CAD; present on admission; stable - No reported chest pain with the events or shortness of breath - Patient sees a order entry in [place]. He states that 5-10 years ago a stent was attempted to be placed but was unsuccessful. - He denies prior [place] Hypertension-continue home amlodipine and lisinopril and for spread CUATE- has CPAP with him for night time use Disposition: Patient has been admitted to the general medical floor under observation. I am concerned the patient is actually not using her taking medications properly, stated he feels his medical pruritus and failing to take care of him. He did think me at the end of the interview but appears to be quite flustered DNR/DNI Exam Vital Signs (Last) Date Time Temp Pulse Resp B/P Pulse Ox O2 Delivery O2 Flow Rate FiO2 03/20/17 05:48 37.0 67 18 143/73 95 Room Air Exam General: Irritated, age-appropriate male in no acute distress HEENT: PERRLA, EOMI, nonicteric, membranes moist Lymph: No lymphadenopathy Cardio: Regular rate and rhythm no murmurs rubs or gallops Respiratory: CTA bilaterally, no wheezes, no crackles Abdomen: Soft, positive bowel sounds, nontender, nondistended Extremities: No edema, 4.5/5 strength, sensation intact Psych: appears to calm Neuro: No focal deficits Skin: No rash Test 03/17/17 15:34 03/18/17 05:20 03/19/17 03:20 03/20/17 05:35 Hematology Comments Iron Level 27ug/dL (35-150) Total Iron Binding Capacity 308ug/dL (250-450) Percent Iron Saturation 9%sat (15-50) Unsaturated Iron Binding 281.2ug/dL Vitamin B12 Level 612pg/mL (211-946) Folate 10.1ng/mL (>3.0) Thyroid Stimulating Hormone (TSH) 3.380uIU/mL (0.450-4.500) Free Thyroxine 0.97ng/dL (0.82-1.77) Hold [place]man Top Tube Received (Received) Neutrophils (%) (Auto) 79.7% (40-74) Lymphocytes (%) (Auto) 9.5% (14-46) Monocytes (%) (Auto) 8.0% (4-12) Eosinophils (%) (Auto) 2.4% (0-5) Basophils (%) (Auto) 0.3% (0-3) Sodium Level 140mEq/L (134-144) Potassium Level 3.6mEq/L (3.5-5.2) Chloride Level 105mEq/L (97-108) Carbon Dioxide Level 21mmol/L (18-29) Blood Urea Nitrogen 17mg/dL (8-27) Creatinine 0.91mg/dL (0.76-1.27) Estimat Glomerular Filtration Rate 86mL/min (>59) Glucose Level 133mg/dL (60-99) Calcium Level 8.5mg/dL (8.5-10.1) Magnesium Level 1.7mg/dL (1.6-2.6) Ferritin 346ng/mL (30-400) Total Bilirubin 0.4mg/dL (0.0-1.2) Aspartate Amino Transf (AST/SGOT) 20U/L (0-50) Alanine Aminotransferase (ALT/SGPT) 20U/L (0-44) Alkaline Phosphatase 102U/L (25-160) Total Protein 6.5g/dL (6.4-8.4) Albumin 3.2g/dL (3.4-5.0) Procalcitonin 0.05ng/mL (0.00-0.08) [place] Level 1.0mEq/L (0.5-1.5) Urine Color Yellow (YELLOW) Urine Appearance Clear (CLEAR,HAZY) Urine pH 6.0 (5.0-8.0) Urine Specific [place] 1.010 (1.003-1.035) Urine Protein Negativemg/dL (NEG,TRACE) Urine Glucose (UA) Negativemg/dL (NEGATIVE) Urine Ketones Negativemg/dL (NEGATIVE) Urine Occult Blood Negative (NEGATIVE) Urine Nitrite Negative (NEGATIVE) Urine Bilirubin Negative (NEGATIVE) Urine Urobilinogen 1.0mg/dL (NORMAL) Urine Leukocyte Esterase Negative (NEGATIVE) Urine RBC 0-2/hpf (0-2) Urine WBC 0-5/hpf (0-5) Urine Epithelial Cells Occasional/hpf (NONE-MOD) Urine Crystals None seen (NONE SEEN) Urine Bacteria Few/hpf (NONE-FEW) Urine Hyaline Casts None/lpf (NONE) Urine Granular Casts None seen (NONE SEEN) Urine Waxy Casts None seen (NONE SEEN) Urine Red Blood Cell Casts None seen (NONE SEEN) Urine White Blood Cell Casts None seen (NONE SEEN) Urine Mucus None seen (None Seen) Urine Trichomonas None seen (NONE SEEN) Urine Yeast None (NONE SEEN) Urinalysis Comment None Urine Culture Reflexed Not indicated White Blood Count 11.3th/mm3 (3.8-10.1) Red Blood Count 3.75mil/mm3 (4.40-5.80) Hemoglobin 9.7g/dL (13.8-17.2) Hematocrit 30.9% (41.0-50.0) Mean Corpuscular Volume 82.4fL (81-100) Mean Corpuscular Hemoglobin 25.9pg (27.0-35.0) Mean Corpuscular Hemoglobin Concent 31.4% (32.0-37.0) Red Cell Distribution Width 16.1% (12.3-15.4) Platelet Count 240bil/L (150-400) Prothrombin Time 14.5sec (8.1-12.5) Prothromb Time International Ratio 1.35ratio Discharge Medications Discharge Medications Amlodipine (Amlodipine) 5 Mg Tablet 5 MG PO DAILY Prescribed by: GINA MCKEON DO Aspirin (Aspirin) 81 Mg Tablet 81 MG PO QAM (Reported) Cholecalciferol (Vitamin D3) (Vitamin D3) 1,000 Unit Tab.chew 1,000 UNIT PO QAM (Reported) Cyanocobalamin/Folic Acid (Vitamin M30-Hegad Acid Tablet) 1 Each Tablet 1 EACH PO QAM (Reported) Ferrous Sulfate (Feosol) 325 Mg Tablet 325 MG PO BIDWM Prescribed by: GINA MCKEON DO Fexofenadine (Fexofenadine) 60 Mg Tablet 120 MG PO QAM (Reported) Furosemide (Furosemide) 40 Mg Tablet 20 MG PO QAM (Reported) Lisinopril (Lisinopril) 10 Mg Tablet 10 MG PO BID (Reported) Metformin (Glucophage) 500 Mg Tablet 1,000 MG PO BIDWM Prescribed by: GINA MCKEON DO Paroxetine (Paroxetine) 10 Mg Tablet 10 MG PO HS (Reported) Pramipexole Dihydrochloride (Mirapex) 0.25 Mg Tablet 0.25 MG PO DAILY (Reported ) Pravastatin (Pravastatin) 80 Mg Tablet 80 MG PO HS (Reported) Ranitidine (Ranitidine) 300 Mg Capsule 300 MG PO DAILY (Reported) [place] (Saw [place]) 160 Mg Capsule 160 MG PO QAM (Reported) Sitagliptin Phos (Januvia) 50 Mg Tablet 50 MG PO DAILY Prescribed by: GINA MCKEON DO As needed Scopolamine (Transderm-Scop) 1 Each Patch.td72 1 EACH TD Q3 DAYS PRN PRN For Dizziness (Reported) Followup Plan Follow-up plan F/U with Dr. Mason on 03/23/17 as previously scheduled F/U with Interventional Radiology this afternoon for your biopsy procedures Discharge Diet: Heart Healthy, Diabetic Discharge Activity: Limited until seen by PCP Patient Instructions Please follow up with CT Diagnostic center at [facility] w/ Dr Christy for your biopsy procedures, which you have scheduled as outpatient. Please f/u with your PCP closely via phone and an appt in 3 days (03/23/17) regarding your coumadin dosing. Please note your metformin is increased and a new medication januvia is added F/U with Dr. Amaya or Dr. Hernandez in 2 weeks for Diabetes II, check your BG twice a day, as instructed by them and keep a log HH RN care is requested 5 times a week to take car eof patient's medication regimen as this is becoming more complicated to him Time spent > 35 min spent on preparation of discharge with <50% of that time dedicated to patient counseling and coordination of care. Gina Mckeon DO Mar 20, 2017 11:23
--- NOTE | 2017-03-20 11:34 | NUR ---
Social Work: Readiness for Discharge/Multidisciplinary Rounds D: EMR reviewed. Pt is on day 3 of hospitalization. Pt discussed in multidisciplinary rounds. Per multidisciplinary rounds, pt is medically stable for discharge home today. ordered HH RN 3x/week for medication management. SW met with pt to discuss MD recommendations. Pt stated he is not going home on any new medications and is not homebound. Pt declines HH at this time. MD updated. A: SW assessed pt's capacity for self-care. SW does not have any concerns for pt's capacity for self-care. Pt is independent with ADLs at baseline. Pt does not have any concerns regarding discharge at this time. Pt feels safe discharging home and will remain independent. P: Pt to discharge home today with family to transport via POV. No SW needs identified. HH order received. SW discussed with pt - pt declined HH. SW will continue to follow for needs until time of discharge. ROBERTO Durán
--- NOTE | 2017-03-20 14:07 | NUR ---
Social Work: Discharge D: EMR reviewed. Pt is on day 3 of hospitalization. Pt discussed in multidisciplinary rounds. Per multidisciplinary rounds, pt is medically stable for discharge home today. MD ordered HH RN 3x/week for medication management. SW met with pt to discuss MD recommendations. Pt stated he is not going home on any new medications and is not homebound. Pt declines HH at this time. MD updated. A: SW assessed pt's capacity for self-care. SW does not have any concerns for pt's capacity for self-care. Pt is independent with ADLs at baseline. Pt does not have any concerns regarding discharge at this time. Pt feels safe discharging home and will remain independent. P: Pt to discharge home today with family to transport via POV. No SW needs identified. HH order received. SW discussed with pt - pt declined HH. ROBERTO Durán
[2017-03-20 15:02] VITALS: BP 138/75; PULSE 58; RESP 16; O2SAT 96
--- NOTE | 2017-03-20 15:28 | NUR ---
Discharge Patient discharged home but prior to leaving hospital patient was taken to CT for guided medialstinal biopsy and then will be released home from there. Patient was given verbal and written home care instructions and meds discussed. Patient will follow up with Dr Amaya on 03/24/17 as scheduled and his own primary Dr on . Prescription for iron and diabetic meds discussed. Patient denied any further questions when asked. took belongings .
--- NOTE | 2017-03-23 16:01 | PATH ---
SURGICAL PATHOLOGY Attending Physician:Homero Rodriguez CASE STATUS: Signed Out PATIENT NAME: RAHSAAD RUIZ PID: [id number] : 1940 DATE COLLECTED:03/20/2017 00:00 SPECIMEN: Mediastinum, Mass CLINICAL HISTORY: 1). MEDIASTINAL MASS FINAL DIAGNOSIS: 1. MEDIASTINAL MASS, BIOPSY: - Minute fragments of thyroid neoplasm with papillary architecture and papillary nuclear features. - Separate small detached fragment of hyalinized connective tissue with atypical glands. - See comment. ICD10 E04.1 NOTE: Histologic sections demonstrate scant fragments of thyroid neoplasm (confirmed by immunohistochemical stains, see microscopic description) with papillary nuclear features characterized by intranuclear pseudo-inclusions, nuclear irregularity, and nuclear grooves. A small fragment of fibroconnective tissue with atypical glands is identified; this is suspicious of but not diagnostic of invasion. The scant nature of the biopsy precludes accurate assessment of invasion. Overall, the morphologic features are concerning but a definite diagnosis of a malignancy can not be made with certainty. Clinical and radiologic correlation is recommended. As part of a routine quality control microbiology supervisor, Dr. Tamez has also reviewed this case and agrees with the diagnosis. The case will be sent to Dr. Gonzalez for consultation and the results will be reported as an addendum. GROSS DESCRIPTION: Received in formalin, labeled with the patient' s name and "Mediastinal mass", are three fragments of españa, soft tissue ranging from 0.1 x 0.1 x 0.1 cm to 0.3 x 0.1 x 0.1 cm. The fragments are totally submitted in one cassette. [id number]) MICRO DESCRIPTION: Immunohistochemical stains were performed to evaluate for the nature of the neoplastic cells. The cells are positive for PAX-8 (diffuse), TTF-1(diffuse), and Thyroglubulin (variable), and are negative for Napsin-A. The control stains show appropriate reactivity. This test was developed and its performance characteristics determined by [employer]. It has not been cleared or approved by the U. S. Food and Drug Administration. The FDA has determined that such clearance or approval is not necessary. This test is used for clinical purposes. It should not be regarded as investigational or for research. ICD-9 CODES: CPT CODES: 1: 52187, 59329, 50522, 12841, 54026 PROCEDURE/ADDENDA: Addendum SPI Addendum Diagnosis This addendum is issued to report the results of consultation on the case. FINAL DIAGNOSIS: MEDIASTINAL MASS, BIOPSY: PAPILLARY THYROID CARCINOMA, SEE COMMENT. Addendum Comment The case was reviewed in consultation by Dr. Greene and features diagnostic of papillary thyroid carcinoma were identified. For a more detailed description, please see the consultation report. Electronically Signed Out Brad Erazo MD Electronically Signed Out Brad Erazo MD [facility] [address], [place] [address] Technical component performed at [facility], [address], [place], [address]
== END 2017-03-20 15:35 | disposition home health service (06) | DRG 639 ==
LOC: SED 14:59 → OSC 19:29 → OBSVTOIN 19:29 → OSC 20:00
PROVIDERS: ADMIT Family Medicine; ATTEND Hospitalist
DX: E11.649 Type 2 diabetes mellitus with hypoglycemia without coma (principal); I25.10 Atherosclerotic heart disease of native coronary artery without angina pectoris; G47.33 Obstructive sleep apnea (adult) (pediatric); I10 Essential (primary) hypertension; Z79.84 Long term (current) use of oral hypoglycemic drugs; E07.9 Disorder of thyroid, unspecified; I48.91 Unspecified atrial fibrillation; Z79.01 Long term (current) use of anticoagulants

== ENCOUNTER 2017-04-06 07:49 | Day surgery (SDC) | payer MEDICARE, OTHER ==
[~2017-04-06] VITALS: Ht 190.5 cm; Wt 89.4 kg
[~2017-04-06 07:49] MED LIST changes: +FERR-74 PO; -GLIP5POW MC; -METF1000 PO; +METF500T PO; +SCOP1PAT TD; +SITA50TA PO; +Sodium Chloride LOK Flush 10 mL Syringe IV PRN; +fentaNYL-PF 50 mCg/mL 2 mL Inj IVPUSH PRN
[2017-04-06 08:38] VITALS: BP 121/66; PULSE 52; RESP 16; O2SAT 98
[2017-04-06] MEDS: 0.9% Sodium Chloride 1,000 ML IV SCH ×4 (08:47→09:59)
[2017-04-06 10:07] VITALS: BP 114/68; PULSE 62; RESP 16; O2SAT 97
[2017-04-06 10:16] VITALS: BP 116/65; PULSE 66; RESP 16; O2SAT 95
[2017-04-06 10:23] VITALS: BP 128/69; PULSE 64; RESP 16; O2SAT 98
--- NOTE | 2017-04-06 10:56 | ENDO ---
[address] [address] ENDOSCOPY PROCEDURE PATIENT: RASHAAD RUIZ : 1940 MR#: [id number] ADMIT: 04/06/2017 JOB ID: [id number] DATE OF SURGERY: 04/06/2017 PREOPERATIVE DIAGNOSIS(ES): Anemia. POSTOPERATIVE DIAGNOSIS(ES): 1. Distal esophagitis. 2. Probable old pre-pyloric ulcer. 3. Extensive sigmoid diverticulosis. 4. Transverse colon polyp x2. 5. Descending colon polyp x1. 6. Sigmoid colon polyp. 7. Large internal hemorrhoids. OPERATION: 1. Upper endoscopy with biopsy. 2. Colonoscopy to cecum with snare polypectomy x2 and cold forceps polypectomy with cautery x2. SURGEON: Júnior Hayden M.D. INDICATIONS: A 77-year-old man recently found to be mildly anemic. He also has a history of a previous gastric ulcer. 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 After discussing options with the patient, it is elected to proceed with an upper endoscopy as well as a colonoscopy. FINDINGS: His vocal cords were visualized and moved symmetrically. There appeared to be some right to left deviation of the larynx from the thyroid mass. There is no gross evidence of tracheal or esophageal invasion by the carcinoma. The esophagus was normal down to the GE junction which was at 43 cm from the incisors. There was a small area of inflammation right at the GE junction. It was biopsied. Retroflexed views of the cardia revealed a Hill grade II flap valve. The fundus and body of the stomach appeared normal. His previous gastric ulcer was in the antrum and I have scoped him several times for that and that ulcer was healed. There was some inflammation without clear evidence of an ulcer on the pre-pyloric antrum. The duodenum into the second portion of the duodenum was normal. He had a fair prep. The scope was advanced to the cecum. He had a pedunculated transverse polyp measuring approximately 6 mm but unfortunately I could not identify it and retrieve it. There was a sigmoid colon polyp about 5 mm that I removed with a snare and then a transverse polyp biopsied with forceps with cautery measuring about 2-3 mm and then another descending colon polyp taken with forceps with cautery measuring about 2-3 mm. Retroflexed views of the cardia revealed very large external hemorrhoids. They were not bleeding. PROCEDURE: The procedure and sedation plan was discussed with the patient and nursing staff, and a procedural time-out was held. He gargled viscous Xylocaine. He received 4 mg of Versed and 75 mcg of fentanyl. Olympus GIF H 180 video endoscope was passed transorally, advanced to the second portion of the duodenum with results stated above. Biopsies of the prepylorus and of the GE junction were obtained. A digital rectal examination was performed and the Olympus PCF H 180 AL video colonoscope was passed transanally, advanced to the cecum, withdrawn with snare polypectomy x2 and forceps biopsy with cautery x2 as described above. Unfortunately the transverse colon polyp was not retrieved. He had extensive sigmoid diverticulosis and retroflexed views of the rectum revealed large internal hemorrhoids. IMPRESSION: Multiple potential sources for anemia. I did not see any obvious invasion of the trachea or the esophagus from his papillary carcinoma of the esophagus. PLAN: He is scheduled to see Dr. Juliano Oliveira next week at [facility] for his evaluation of his thyroid cancer. We will call him with results of the biopsies and he will restart his warfarin in two days.
--- NOTE | 2017-04-07 16:43 | PATH ---
SURGICAL PATHOLOGY Attending Physician:Homero Rodriguez CASE STATUS: Signed Out PATIENT NAME: RASHAAD RUIZ PID: [id number] : 1940 DATE COLLECTED:04/06/2017 17:18 SPECIMEN: 1: Gastric, Biopsy 2: Esophagus, Biopsy 3: Colon, Polyp 4: Colon, Polyp 5: Colon, Polyp CLINICAL HISTORY: 1). PRE-PYLORIC ULCER BIOPSY 2). GASTRO-ESOPHAGEAL JUNCTION BIOPSY 3). SIGMOID POLYP 4). TRANSVERSE COLON POLYP #2 5). DESCENDING COLON POLYP FINAL DIAGNOSIS: 1. Prepyloric Ulcer, Biopsy: Gastric antral-type mucosa with reactive epithelial changes consistent with adjacent ulcer. Helicobacter organisms not identified. Negative for intestinal metaplasia, dysplasia, and malignancy. 2. Gastroesophageal Junction, Biopsy: Squamocolumnar junctional mucosa with chronic inflammation. Negative for intestinal metaplasia, dysplasia or malignancy. 3. Sigmoid Colon Polyp, Biopsy: Tubular adenoma. 4. Transverse Colon Polyp #2, Biopsy: Colonic mucosa with no diagnostic abnormality consistent with polypoid redundancy. 5. Descending Colon Polyp, Biopsy: Tubular adenoma. ICD10: R10.13 D12.6 GROSS DESCRIPTION: The specimen is received in 2 formalin filled containers labeled with the patient's name. 1). The specimen is labeled "pre pyloric ulcer" and consists of 3 portions of tissue which aggregate to 0.2 x 0.2 x 0.2 CM. The specimen is entirely submitted in cassette 1A. 2). The specimen is labeled "GEJ" and consists of 3 portions of tissue which aggregate to 0.3 x 0.3 x 0.2 CM. The specimen is entirely submitted in cassette 2A. 3). The specimen is labeled "sigmoid polyp" and consists of a 0.5 x 0.4 x 0.4 CM portion of tissue which is bisected and entirely submitted in cassette 3A. 4). The specimen is labeled "transverse colon polyp #2" and consists of a 0.2 x 0.2 x 0.1 CM portion of tissue which is entirely submitted in cassette 4A. 5). The specimen is labeled "descending colon polyp" and consists of a 0.2 x 0.2 x 0.2 CM portion of tissue which is entirely submitted in cassette 5A. 04/06/2017DC ICD-9 CODES: CPT CODES: 1: 96645 2: 72530 3: 03210 4: 55907 5: 71328 Electronically Signed Out Yony Das MD, Ph.D. [facility] [address], [place] [address] Technical component performed at [facility], [address], [place], [address]
== END 2017-04-06 23:59 | disposition home or self-care (01) ==
LOC: END 07:49
PROVIDERS: ATTEND Surgery
DX: D64.9 Anemia, unspecified (principal); D12.5 Benign neoplasm of sigmoid colon; D12.4 Benign neoplasm of descending colon; K63.5 Polyp of colon; K57.30 Diverticulosis of large intestine without perforation or abscess without bleeding; K64.8 Other hemorrhoids; K20.8 Other esophagitis; K25.9 Gastric ulcer, unspecified as acute or chronic, without hemorrhage or perforation; C73 Malignant neoplasm of thyroid gland
CPT/HCPCS: 43239; 45384; 45385; 88305; 99153; G0500; J2250; J3010; J7030